=== PATIENT | male | born 1965 | race African-American/Black ===

== ENCOUNTER 2021-12-07 02:11 | Emergency (ER) | payer OTHER, SELFPAY ==
[2021-12-07] VITALS (10 sets, daily range): BP systolic 140–161; BP diastolic 90–103; PULSE 96–103; RESP 14–26; TEMP 36.3; O2SAT 99–100
--- NOTE | ~2021-12-07 | XR_ITS ---
EXAMINATION: XR chest 1V portable DATE: 12/07/2021 03:20 INDICATION: Shortness of breath. TECHNIQUE: A single frontal view of the chest was obtained. COMPARISON: None. FINDINGS: Tashi B lines are noted, consistent mild pulmonary edema. No pleural effusion or pneumotho rax. Cardiomegaly is noted. IMPRESSION: 1. Mild pulmonary edema. 2. Cardiomegaly. Reviewed, dictated and finalized at location A.
--- NOTE | 2021-12-07 02:34 | ECG_ITS ---
Measurements Intervals [place] Rate: 98 P: 66 W[place]: 181 QRS: -72 QRSD: 114 T: 97 QT: 382 QTc: 489 Interpretive Statements SINUS RHYTHM ATRIAL PREMATURE COMPLEX POSSIBLE LEFT ATRIAL ENLARGEMENT LEFT ANTERIOR FASCICULAR BLOCK BORDERLINE ST-T WAVE ABNORMALITY- HIGH LATERAL LEADS ABNORMAL ECG NO PREVIOUS ECG AVAILABLE FOR COMPARISON Electronically Signed On 12-07-2021 6:37:25 CDT by Gopi Abbott D.O.
--- NOTE | 2021-12-07 02:36 | ED.GENADULT ---
HPI - General Adult General Chief complaint: Shortness of Breath/Dyspnea Stated complaint: SOB Time Seen by Provider: 12/07/21 02:23 History of Present Illness HPI narrative: 56-year-old male with history of COPD on dialysis presents to the emergency department for evaluation of intermittent shortness of breath. Patient does live at home. Patient is normally on 2 L of oxygen. Patient states with ambulation that he feels increasingly short of breath. Patient does do dialysis on Tuesdays and Saturdays. Patient states he has not missed any dialysis. Patient states he did have some shortness of breath on Saturday and was evaluated at an outside hospital. Patient states that he had 2 episodes of shortness of breath today so he wanted to be evaluated. Patient arrived by EMS and was saturating at 100% on his normal 2 L of oxygen by nasal cannula. On arrival patient appeared to be in no distress. Patient denies any shortness of breath at rest. Patient denies any current chest pain. Related Data Home Medications Medication Instructions Recorded Confirmed albuterol sulfate 90 mcg/actuation 2 puff inhalation QID PRN 12/09/21 12/09/21 aerosol inhaler Shortness Of Breath atorvastatin 40 mg tablet 40 mg PO DAILY 12/09/21 12/09/21 fluticasone fur. 100 mcg-umeclid 1 inh inhalation DAILY 12/09/21 12/09/21 62.5 mcg-vilant 25 mcg inhalat.powder (Trelegy Ellipta) lorazepam 1 mg tablet See Rx Instructions .Route .COMPLEX 12/09/21 12/09/21 Allergies Allergy/AdvReac Type Severity Reaction Status Date / Time No Known Allergies Allergy Verified 12/07/21 02:50 Review of Systems Review of Systems: CONSTITUTIONAL: Denies fever, chills, or sweats. EYES: Denies visual changes, redness, or discharge. ENT: Denies rhinorrhea, congestion, sore throat, or otalgia. CARDIOVASCULAR: Denies chest pain, palpitations, or edema. RESPIRATORY: See HPI GASTROINTESTINAL: Denies abdominal pain, nausea, vomiting, or diarrhea. GENITOURINARY: Denies dysuria or hematuria. SKIN: Denies rash or itching. MUSCULOSKELETAL: Denies back pain, joint pain, or myalgia. NEUROLOGIC: Denies headache, numbness, or weakness. [facility] Past Medical History Medical History (Updated 12/10/21 @ 10:11 by Rogelio Webster MD) Anemia of chronic disease Anxiety AV fistula Chronic respiratory failure COPD (chronic obstructive pulmonary disease) End stage renal disease Erythropoietin deficiency anemia Hyperlipidemia Hypertension Renal osteodystrophy Troponin I above reference range Surgical History Surgical History (Updated 12/09/21 @ 15:21 by Nichole Conroy NP) S/P dialysis catheter insertion Family History Family History (Updated 12/09/21 @ 15:21 by Nichole Conroy NP) Unknown Family history unknown Social History Social History (Updated 12/09/21 @ 15:22 by Nichole Conroy NP) Social History: The patient is single and disabled. He is a former smoker. He is listed as a full code. His mother Lacie paris is listed as his contact center associate. Code status full code Smoking status: Former smoker Tobacco type: cigarettes Alcohol intake: never Substance use: former Spiritual care concerns: No Exam Narrative: APPEARANCE: Well appearing, no pain, no distress, well-nourished. HEAD: normocephalic, atraumatic. EYES: PERRLA/EOMI, conjunctivae clear. NOSE: Normal no drainage THROAT: Pharynx clear, no exudate. NECK: Supple. No adenopathy, no masses. RESPIRATORY: Some lung congestion CARDIOVASCULAR: Regular rate and rhythm without murmurs rubs or gallops. ABDOMINAL: Soft, nontender, nondistended, normal bowel sounds MUSCULOSKELETAL: Moves all extremities. Strength/ROM intact, No edema, No calf tenderness. NEURO: Alert. Cranial nerves II through XII intact. Grossly intact SKIN: Warm, dry. Normal Color Course Course Emergency Course: Patient was not complaining of any chest pain but was having intermittent shortness of breath. Pat
[2021-12-07] MEDS: ALBUTEROL SULFATE NEB 2.5 MG/3 ML INH 5 MG INHALATION (02:51)
[2021-12-07 02:57] LABS: Alveolar/Arterial O2 Gradient 62.9 mmHg; Base Excess ABG 2.4 mEq/l (+/-2.0); Fractional Inspired Oxygen 28 %; HCO3 ABG 26.5 mEq/l (22.0-26.0); Oxygen Saturation ABG 97.3 % (95.0-100.0); Oxyhemoglobin 94.5 % THb (90.0-100.0); PCO2 ABG 39.1 mmHg (35.0-45.0); PO2 ABG 90.6 mmHg (80.0-100.0); PO2 FiO2 Ratio Arterial Blood 3.24 %; Total Hemoglobin 12.7 g/dL (12.0-18.0); pH ABG 7.449 (7.350-7.450)
[2021-12-07 02:58] LABS: Device NASAL CANNULA; Modified Allen's Test Pass; Site Drawn RIGHT RADIAL
[2021-12-07 03:06] LABS: Basophils Absolute Auto 0.1 K/mm3 (0.0-0.1); Eosinophils Absolute Auto 0.2 K/mm3 (0-0.3); Eosinophils Percent Auto 2.6 % (0-4.4); Hematocrit 39.8 % (42.0-52.0); Immature Granulocyte Absolute 0.02 K/mm3 (0.00-0.031); Immature Granulocyte Percent A 0.3 % (0-0.5); Lymphocytes Absolute Auto 1.02 K/mm3 (0.9-3.2); Lymphocytes Percent Auto 16.7 % (18.3-44.2); Mean Corpuscular HGB Conc 30.2 g/dl (32-36); Mean Corpuscular Hemoglobin 31.4 pg (26-34); Mean Corpuscular Volume 104.2 fl (80-100); Monocytes Absolute Auto 0.8 K/mm3 (0.1-0.6); Monocytes Percent Auto 13.4 % (2.6-8.5); Platelet Count Result 122 k/mm3 (150-375); Red Blood Count 3.82 M/mm3 (4.6-6.20); Red Cell Distribution Width 17.1 % (11.5-14.5); White Blood Count 6.1 K/mm3 (4.5-10.0)
[2021-12-07 03:16] LABS: Alanine Aminotransferase 54 U/L (6-50); Albumin Level 4.2 g/dL (3.5-5.1); Alkaline Phosphatase 393 U/L (38-126); Anion Gap 17 mmol/L (8-16); Aspartate Amino Transferase 59 U/L (17-59); Blood Urea Nitrogen 58 mg/dL (9-20); Calcium 9.4 mg/dL (8.4-10.2); Carbon Dioxide 32 mmol/L (22-30); Chloride 95 mmol/L (98-107); Estimated Glomerular Filt Rate 6; Glucose 148 mg/dL (65-110); Potassium 4.5 mmol/L (3.4-5.0); Sodium 144 mmol/L (137-145)
[2021-12-07 03:42] LABS: SARS-CoV-2 RNA PCR Negative
--- NOTE | 2021-12-07 04:16 | PC.NURSE ---
called [facility] to request transport. ETA [id number]
--- NOTE | 2021-12-07 04:43 | PC.NURSE ---
[facility] here
== END 2021-12-07 04:53 | disposition home or self-care (01) ==
PROVIDERS: Emergency Provider Emergency Medicine
DX: R06.02 Shortness of breath (principal); Z20.822 Contact with and (suspected) exposure to COVID-19; I12.0 Hypertensive chronic kidney disease with stage 5 chronic kidney disease or end stage renal disease; N18.6 End stage renal disease; D63.1 Anemia in chronic kidney disease; J44.9 Chronic obstructive pulmonary disease, unspecified; J96.10 Chronic respiratory failure, unspecified whether with hypoxia or hypercapnia; E78.5 Hyperlipidemia, unspecified; N25.0 Renal osteodystrophy; Z99.2 Dependence on renal dialysis; Z99.81 Dependence on supplemental oxygen; Z87.891 Personal history of nicotine dependence; I49.1 Atrial premature depolarization; R94.31 Abnormal electrocardiogram [ECG] [EKG]
CPT/HCPCS: 36415; 36600; 71045; 80053; 82805; 85025; 93005; 94640; 99283; C9803; U0003; U0005

== ENCOUNTER 2021-12-09 07:32 | Inpatient (IN) | payer OTHER, SELFPAY ==
[2021-12-09] VITALS (60 sets, daily range): BP systolic 100–189; BP diastolic 56–119; PULSE 60–114; RESP 14–37; TEMP 36.2–37; O2SAT 92–100; BMI 21.2
--- NOTE | ~2021-12-09 | US_ITS ---
EXAMINATION: US right upper quadrant DATE: 12/10/2021 10:22 INDICATION: Elevated liver function tests TECHNIQUE: Multiple grayscale and Doppler ultrasound images of the abdomen were obtained. COMPARISON: None FINDINGS: Neck of pancreas. Small amount of perihepatic ascites surrounding the shrunken and nodular cirrhotic liver. Liver has normal echogenicity with coarsened. No discrete hepatic lesions identified. No intra hepatic biliary duct dilation suspected. Portal vein is dilated to 1.7 cm and there is bidirectional portal venous flow with increased pulsatility consistent with portal venous hypertension likely relat ed to cirrhosis. There is mild wall thickening of the nondistended gallbladder with trace amount of p ericholecystic fluid was likely related to liver disease. No evident cholelithiasis and sonographic M urphy sign was reported as negative by the harvester operator. The common bile duct measures up to 3 mm in m aximal diameter which is normal. The right kidney measures 7.0 x 3.8 x 4.7 cm with diffuse increased cortical echogenicity consistent with medical renal disease. No hydronephrosis at the right kidney. IMPRESSION: 1. Cirrhosis with small amount of perihepatic ascites and bidirectional flow in the mildly dilated ma in portal vein consistent with secondary portal venous hypertension. 2. Mild gallbladder wall thickening but without dilation, cholelithiasis or sonographic Spangler sign t o suggest acute cholecystitis and this is most likely related to liver disease. 3. Mildly atrophic kidney with diffuse increased cortical echogenicity consistent with medical renal disease. Reviewed, dictated and finalized at location A. IMPRESSION: 1. Cirrhosis with small amount of perihepatic ascites and bidirectional flow in the mildly dilated main portal vein consistent with secondary portal venous hy pertension. 2. Mild gallbladder wall thickening but without dilation, cholelithiasis or son ographic Spangler sign to suggest acute cholecystitis and this is most likely rel ated to liver disease. 3. Mildly atrophic kidney with diffuse increased cortical echogenicity consiste nt with medical renal disease.
--- NOTE | ~2021-12-09 | NM_ITS ---
HEPATOBILIARY SCAN Procedure: Hepatobiliary scan performed following IV administration 4.8 mCi Tc 99m Choletec. At 60 m inutes 1.2 mcg CCK administered IV for evaluation of gallbladder ejection fraction. Indication:Dilated gallbladder. Cirrhosis. Comparison: CT dated 12/11/2021 Findings: There is normal radiotracer uptake in the liver parenchyma with prompt excretion into the b iliary tract. Gallbladder visualized at 30 minutes. Small bowel visualized at 35 minutes. Normal g allbladder ejection fraction measures 49% (normal 10-90%, but most patients with gallbladder dysfunct ion have GBEF of less than 35%) Impression: 1: Normal hepatobiliary scan. Reviewed, dictated and finalized at location A. Impression: 1: Normal hepatobiliary scan.
--- NOTE | ~2021-12-09 | XR_ITS ---
EXAMINATION: XR chest 1V portable DATE: 12/10/2021 10:54 INDICATION: Shortness of breath TECHNIQUE: frontal view of the chest was obtained. COMPARISON: 12/09/2021 FINDINGS: Mild right apical pleural-parenchymal scarring. Minimal streaky opacities at the bilateral lung bases which could represent atelectasis or minimal pulmonary edema. No pleural effusion or pneumothorax. C ardiomegaly. Peripheral IV at the right upper arm. IMPRESSION: 1. Mild bibasilar atelectasis versus minimal pulmonary edema. 2. Cardiomegaly. Reviewed, dictated and finalized at location A.
--- NOTE | ~2021-12-09 | XR_ITS ---
EXAMINATION: XR chest 1V portable DATE: 12/09/2021 08:48 INDICATION: Shortness of breath. TECHNIQUE: A single frontal view of the chest was obtained. COMPARISON: Chest single view 12/07/2021 FINDINGS: There is mild atelectasis in the lower lung zones. No pleural effusion or pneumothorax. Car diomediastinal is noted. IMPRESSION: 1. Mild atelectasis in the lower lung zones. 2. Cardiomegaly. Reviewed, dictated and finalized at location A.
--- NOTE | ~2021-12-09 | US_ITS ---
EXAMINATION: US aorta DATE: 12/10/2021 10:22 INDICATION: Abdominal distention and abdominal bruit TECHNIQUE: Grayscale, color Doppler, and pulsed Doppler images of the aorta and common iliac arteries were obtained. COMPARISON: None. FINDINGS: The proximal aorta measures 2.2 cm AP. The mid aorta measures 1.9 cm AP. The distal aorta measures 1. 2 cm AP. The right common iliac artery measures centimeters. The left common iliac artery measures 1 cm. IMPRESSION: 1. Normal caliber abdominal aorta. Reviewed, dictated and finalized at location A.
--- NOTE | ~2021-12-09 | CT_ITS ---
EXAMINATION: CT brain wo con DATE: 12/11/2021 19:50 INDICATION: confusion . TECHNIQUE: Computed tomography (CT) of the head was performed without intravenous contrast. The mA wa s adjusted according to patient size. Iterative reconstruction technique was employed. The dose-lengt h product was 908.00 mGy-cm. COMPARISON: None FINDINGS: Motion present which required repeat imaging. No acute intracranial hemorrhage or extra-axial fluid collection. No hydrocephalus, mass, or herniation. No acute ischemic infarct. Unremarkable dural venous sinus attenuation. No acute osseous abnormality. The aerated spaces are clear. Mild atrophy and chronic white matter change. Atherosclerotic intracranial calcification. 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 Old bilateral lacunar basal ganglia infarcts, focal bilateral thalamic infarc ts, and focal pontine infarcts. IMPRESSION: Motion limited examination. No definite acute intracranial process. Reviewed, dictated and finalized at location K.
--- NOTE | ~2021-12-09 | CT_ITS ---
EXAMINATION: CT abdomen pelvis wo con DATE: 12/11/2021 19:50 INDICATION: abd pain TECHNIQUE: Computed tomography (CT) of the abdomen and pelvis was performed without intravenous contr ast. Automated exposure control and iterative reconstruction technique were employed. The dose-length product was 539.31 mGy-cm. COMPARISON: None. FINDINGS: Exam limited by bowel motion, lack of contrast, and arm down positioning. Lower thorax: Emphysematous and senescent lung changes. Bibasilar scar/atelectasis. Cardiomegaly. Hea vy coronary artery calcification. Liver: Advanced cirrhosis Biliary/Gallbladder: Gallbladder is normal. No bile duct dilation. Pancreas: No mass or duct dilation. Spleen: Normal. Adrenals:Bilateral adrenal thickening, likely hyperplasia. Kidneys: Bilateral renal atrophy. Peripheral calcification along the posterior and inferior aspect of the right lower pole, possibly from prior trauma or procedure, possibly with an old perinephric rose suze. GI tract: No small or large bowel dilation. Normal appendix. Mesentery/Peritoneum: Small volume ascites. No mesenteric mass or free air. Retroperitoneum: No mass. Atherosclerotic abdominal aortic and/or arterial calcifications. Pelvis: Bladder wall thickening, likely due to outlet compromise. Soft Tissues: Gynecomastia. Moderate body wall edema. Bones: No acute osseous finding. IMPRESSION: Limited examination. No acute abdominopelvic finding. Chronic and incidental findings detailed above. Reviewed, dictated and finalized at location K. IMPRESSION: Limited examination. No acute abdominopelvic finding. Chronic and incidental fi ndings detailed above.
--- NOTE | 2021-12-09 07:35 | ECG_ITS ---
Measurements Intervals [place] Rate: 89 P: 63 MD: 164 QRS: -72 QRSD: 132 T: 102 QT: 419 QTc: 511 Interpretive Statements SINUS RHYTHM WITH SINUS ARRHYTHMIA POSSIBLE LEFT ATRIAL ENLARGEMENT [-0.1mV P WAVE IN V1/V2] INTRAVENTRICULAR CONDUCTION DELAY [130+ ms QRS DURATION] LEFT ANTERIOR FASCICULAR BLOCK OLD INFERIOR INFARCT ST-T WAVE ABNORMALITY IN THE LATERAL LEADS COMPARED TO ECG 12/07/2021 03:04:[address]-T WAVE CHANGES IN THE LATERAL LEADS COMPARED TO PRIOR Electronically Signed On 12-10-2021 17:02:46 CDT by Gaetano Sibley M.D.
[2021-12-09] MEDS: DEXTROSE 50% 25 GM/50 ML SYRINGE IV PUSH ×3 (07:37→16:26)
[2021-12-09 07:40] LABS: Glucose Point of Care 50 mg/dl (65-105)
--- NOTE | 2021-12-09 07:52 | ED.WEAKNESS ---
HPI - Weakness General Chief complaint: Weakness Stated complaint: weak/lethargic, from dialysis Time Seen by Provider: 12/09/21 07:50 Source: patient, EMS and RN notes reviewed Limitations: no limitations History of Present Illness HPI Narrative: 56 years old -[place] male brought to the emergency room by ambulance from the dialysis center because of generalized weakness and lethargy since waking up this morning today. Patient denies any fever, chills, nausea, vomiting, just feeling weak and tired all over. Patient on chronic 4 L oxygen, did not miss any dialysis recently. Full code. MD Complaint: lack of energy Related Data Allergies Allergy/AdvReac Type Severity Reaction Status Date / Time No Known Allergies Allergy Verified 12/07/21 02:50 Review of Systems Review of Systems: All systems reviewed & are unremarkable except as noted in HPI and below Exam Narrative: General appearance: Well-developed, well-nourished, somnolent, lethargic, nasal cannula on Skin: Normal color Head: Normocephalic, nontraumatic Eyes: Clear conjunctiva ENT: Oropharynx normal, ears normal, nose normal Neck: Supple, nontender Chest and respiratory: Airway patent, no respiratory distress, no accessory muscle use Heart: Regular rate/rhythm Abdomen: Soft, nontender, no organomegaly, quiet bowel sounds Vascular: Normal peripheral pulses, normal capillary refill. Musculoskeletal: Normal range of motion, nontender back Neurologic: Alert and oriented ?3, somnolence Course Course Emergency Course: Patient became more awake and alert after D50 IV. Hypoglycemia could be the underlying cause of his lethargy. Patient will be admitted to IMU, nephrology consult. Possible hemodialysis today Consultations Consultation #1: Dr. Guevara Date: 12/09/21 Time: 08:30 Vital Signs Vital signs: Vital Signs Temperature 36.5 C 12/09/21 07:23 Pulse Rate 88 12/09/21 07:23 Respiratory Rate 25 H 12/09/21 07:23 Blood Pressure 144/101 H 12/09/21 07:23 Pulse Oximetry 100 12/09/21 07:23 Oxygen Delivery Nasal Cannula 12/09/21 07:23 Oxygen Flow Rate 4 12/09/21 07:23 Temperature 36.5 C 12/09/21 07:23 Pulse Rate 86 12/09/21 08:45 Respiratory Rate 31 H 12/09/21 08:45 Blood Pressure 189/111 H 12/09/21 08:45 Pulse Oximetry 100 12/09/21 07:23 Oxygen Delivery Nasal Cannula 12/09/21 07:23 Oxygen Flow Rate 4 12/09/21 07:23 MDM - Weakness Lab Data Result diagrams: 12/09/21 07:46 12/09/21 07:46 Labs: Lab Results 12/09/21 12/09/21 12/09/21 Range/Units 07:38 07:46 07:46 WBC 11.0 H (4.5-10.0) K/mm3 RBC 3.90 L (4.6-6.20) M/mm3 Hgb 12.2 L (14.0-18.0) g/dL Hct 39.2 L (42.0-52.0) % MCV 100.5 H (80-100) fl MCH 31.3 (26-34) pg MCHC 31.1 L (32-36) g/dl RDW 17.6 H (11.5-14.5) % Plt Count 133 L (150-375) k/mm3 MPV 11.3 H (7.4-10.4) fl Immature Gran % (Auto) 0.5 (0-0.5) % Neut % (Auto) 74.1 H (45.5-73.1) % Lymph % (Auto) 11.3 L (18.3-44.2) % Mcpherson % (Auto) 13.4 H (2.6-8.5) % Eos % (Auto) 0.6 (0-4.4) % Baso % (Auto) 0.1 L (0.2-1.2) % Lymph # (Auto) 1.24 (0.9-3.2) K/mm3 Mcpherson # (Auto) 1.5 H (0.1-0.6) K/mm3 Eos # (Auto) 0.1 (0-0.3) K/mm3 Baso # (Auto) 0.0 (0.0-0.1) K/mm3 Abs Immat Gran (auto) 0.06 H (0.00-0.031) K/mm3 Absolute Neuts (auto) 8.1 H (1.3-6.7) K/mm3 Absolute Nucleated RBC 0.0 (0.0-0.012) K/mm3 Nucleated RBC % 0.2 (0.0-0.2) % PT (11.1-14.7) Seconds INR APTT (22.3-36.8) SECONDS Sodium 138 (137-145) mmol/L Potassium 7.3 H* (3.4-5.0) mmol/L Chloride 94 L (98-1
[2021-12-09 07:53] LABS: Basophils Percent Auto 0.1 % (0.2-1.2); Eosinophils Absolute Auto 0.1 K/mm3 (0-0.3); Eosinophils Percent Auto 0.6 % (0-4.4); Hematocrit 39.2 % (42.0-52.0); Hemoglobin 12.2 g/dL (14.0-18.0); Immature Granulocyte Absolute 0.06 K/mm3 (0.00-0.031); Immature Granulocyte Percent A 0.5 % (0-0.5); Lymphocytes Absolute Auto 1.24 K/mm3 (0.9-3.2); Lymphocytes Percent Auto 11.3 % (18.3-44.2); Mean Corpuscular HGB Conc 31.1 g/dl (32-36); Mean Corpuscular Hemoglobin 31.3 pg (26-34); Mean Corpuscular Volume 100.5 fl (80-100); Mean Platelet Volume 11.3 fl (7.4-10.4); Monocytes Absolute Auto 1.5 K/mm3 (0.1-0.6); Monocytes Percent Auto 13.4 % (2.6-8.5); Neutrophils Absolute Auto 8.1 K/mm3 (1.3-6.7); Neutrophils Percent Auto 74.1 % (45.5-73.1); Nucleated Red Blood Cells Perc 0.2 % (0.0-0.2); Platelet Count Result 133 k/mm3 (150-375); Red Cell Distribution Width 17.6 % (11.5-14.5)
[2021-12-09 08:09] LABS: Alanine Aminotransferase 69 U/L (6-50); Albumin Level 4.3 g/dL (3.5-5.1); Alkaline Phosphatase 378 U/L (38-126); Anion Gap 21 mmol/L (8-16); Aspartate Amino Transferase 126 U/L (17-59); Bilirubin,Total 1.9 mg/dL (0.2-1.3); Blood Urea Nitrogen 74 mg/dL (9-20); Calcium 9.7 mg/dL (8.4-10.2); Carbon Dioxide 23 mmol/L (22-30); Chloride 94 mmol/L (98-107); Estimated CRCL calculation 8 ml/min; Estimated Glomerular Filt Rate 7; Glucose 53 mg/dL (65-110); Potassium 7.3 mmol/L (3.4-5.0); Sodium 138 mmol/L (137-145)
[2021-12-09 08:15] LABS: Glucose Point of Care 190 mg/dl (65-105)
[2021-12-09] MEDS: CALCIUM GLUCONATE 1,000 MG/10 ML VIAL 1000 MG IV PUSH (08:20)
[2021-12-09] MEDS: INSULIN HUMAN REGULAR (*BKC) 100 UNITS/ML 10 UNITS IV PUSH (08:21)
[2021-12-09] MEDS: SODIUM BICARBONATE 8.4% 50 MEQ/50 ML VIAL IV PUSH (08:28)
[2021-12-09 08:30] LABS: CRP 1.1 mg/dL (<1.0)
[2021-12-09 08:31] LABS: Lactic Acid Reflex 5.5 mmol/L (0.7-2.0)
[2021-12-09 08:35] LABS: INR 1.5; Partial Thromboplastin Time 29.9 SECONDS (22.3-36.8); Prothrombin Time 17.2 Seconds (11.1-14.7)
[2021-12-09 08:42] LABS: Alveolar/Arterial O2 Gradient 120.1 mmHg; Base Excess ABG 2.7 mEq/l (+/-2.0); Device NASAL CANNULA; Fractional Inspired Oxygen 36 %; HCO3 ABG 26.2 mEq/l (22.0-26.0); Modified Allen's Test Pass; Oxygen Content ABG 16.3 %vol (16.0-22.0); Oxygen Saturation ABG 97.6 % (95.0-100.0); Oxyhemoglobin 95.2 % THb (90.0-100.0); PCO2 ABG 36.6 mmHg (35.0-45.0); PO2 ABG 94.1 mmHg (80.0-100.0); PO2 FiO2 Ratio Arterial Blood 2.61 %; Site Drawn RIGHT RADIAL; Total Hemoglobin 12.1 g/dL (12.0-18.0); pH ABG 7.473 (7.350-7.450)
[2021-12-09 08:53] LABS: SARS-CoV-2 RNA PCR Negative
[2021-12-09 09:41] LABS: Glucose Point of Care 284 mg/dl (65-105)
--- NOTE | 2021-12-09 09:59 | PC.NURSE ---
called lab at 0957 and added on baseline trop test. spoke to Opal.
--- NOTE | 2021-12-09 10:00 | PC.NURSE ---
BG was 254 at 0945
--- NOTE | 2021-12-09 10:33 | ECG_ITS ---
Measurements Intervals [place] Rate: 96 P: 63 MT: 154 QRS: -69 QRSD: 124 T: 99 QT: 391 QTc: 495 Interpretive Statements SINUS RHYTHM WITH SINUS ARRHYTHMIA POSSIBLE LEFT ATRIAL ENLARGEMENT [-0.1mV P WAVE IN V1/V2] LEFT ANTERIOR FASCICULAR BLOCK [QRS AXIS <= -45, QR IN I, RS IN II] COMPARED TO ECG 12/09/2021 07:39:20 NO SIGNIFICANT CHANGES Electronically Signed On 12-10-2021 17:14:44 CDT by Gaetano Sibley M.D.
--- NOTE | 2021-12-09 10:37 | ECG_ITS ---
Measurements Intervals [place] Rate: 97 P: [place]: 0 QRS: 244 QRSD: 125 T: 94 QT: 411 QTc: 524 Interpretive Statements SINUS RHYTHM WITH PREMATURE ATRIAL COMPLEXES POSSIBLE LEFT ATRIAL ENLARGEMENT LIMB LEAD MISPLACEMENT/REVERSAL IS PRESENT COMPARED TO ECG 12/09/2021 10:47:27 LIMB LEAD MISPLACEMENT/REVERSAL IS PRESENT Electronically Signed On 12-10-2021 17:34:44 CDT by Gaetano Sibley M.D.
--- NOTE | 2021-12-09 10:38 | PC.NURSE ---
lab called again for troponin. lab did not yet run lab. alfonso to run lab at this time.
[2021-12-09] MEDS: SODIUM ZIRCONIUM CYCLOSILICATE 10 GM POWD.PACK 20 GM PO (10:56)
[2021-12-09 10:59] LABS: Troponin I 0.635 ng/mL (0.000-0.034)
--- NOTE | 2021-12-09 10:59 | PM.CNNEP ---
Assessment and Plan Assessment and plan (1) End stage renal disease: Code(s): N18.6 - End stage renal disease Status: Acute Assessment and Plan: the patient has end-stage renal disease. This is due to hypertension. His outpatient kidney doctor is Dr. Tolentino he has been on dialysis for a couple of years. He is due today (2) Hypertension: Code(s): I10 - Essential (primary) hypertension Status: Acute Assessment and Plan: he has hypertension. We do not know as admission medications. His blood pressure is okay right now. (3) Acute hyperkalemia: Code(s): E87.5 - Hyperkalemia Status: Acute Assessment and Plan: His potassium is high. He had EKG changes earlier and he received meds for hyperkalemia. Etiology is unclear. He seems to have not had any problems with potassium in the past. Certainly on as potassium was normal before dialysis. Consider endogenous potassium sources such as GI bleed, rhabdomyolysis, or hemolysis. His lethargy did improve some but he is still very weak. His EKG was repeated in seems a little bit better with QRS a little narrower however he still has significant symptoms so I think we ought to emergently dialyze him. I called Dr. Og who said we could put him up in the ICU. I talked to Skip the lead housekeeper and let him know of my discussion with the ICU doctor and his admission bed will be switched to the ICU as an IMU overflow. I talked with the dialysis supervisor testing and also with the dialysis nurse. She is not in the hospital now but she is coming to do his dialysis. I also called in [facility] to give him right away. (4) Hypoglycemia: Code(s): E16.2 - Hypoglycemia, unspecified Status: Acute Assessment and Plan: He has low glucose. But no diabetes. It is unclear what is going on. He does have a distended abdomen as if he has some ascites. Also has an abdominal bruit. His liver enzymes are elevated his bilirubin is high. Perhaps he has hepatitis or passive congestion from heart failure or cirrhosis, or some other biliary issue. I think he needs a CT scan of the belly but I think we need to get him stabilized as far as his potassium before we do any of this. (5) General weakness: Code(s): R53.1 - Weakness Status: Acute Assessment and Plan: this may be due to his potassium. His blood sugars were also to blame earlier as well. His glucose is higher now after he received the D50. (6) Erythropoietin deficiency anemia: Code(s): D63.1 - Anemia in chronic kidney disease Status: Acute Assessment and Plan: Hemoglobin is mildly low but not low enough to give EPO. (7) Renal osteodystrophy: Code(s): N25.0 - Renal osteodystrophy Status: Acute Assessment and Plan: Will check a phosphorus in the morning (8) Troponin I above reference range: Code(s): R77.8 - Other specified abnormalities of plasma proteins Status: Acute Assessment and Plan: he has positive troponins. Will repeat the EKG and also repeat the troponin. Will leave evaluation of this up to the hospitalist. History of Present Illness Reason for Consult Consult date: 12/09/21 Chief Complaint Chief complaint: General Weakness/Hyperkalemia/Hypoglycemia History of Present Illness Narrative: Scooby a very pleasant 56-year-old gentleman who has multiple medical problems including hypertension, heart murmur, end-stage renal disease on dialysis 3 times a week on Tuesdays and Saturdays under the care of Dr. Tolentino, anemia of chronic kidney disease, renal osteodystrophy , and coronary disease status post heart attack in 2001.. The patient was due for dialysis today and so went to his dialysis center. He was very weak and lethargic when he arrived at the center so they called an ambulance and brought him over to the emergency room. He was evaluated here an
[2021-12-09 11:14] LABS: Reflex Lactic Acid Yes or No Add Lactic
--- NOTE | 2021-12-09 11:25 | PC.NURSE ---
Patient care report called to HANNAH Mendoza. All questions answered at this time.
--- NOTE | 2021-12-09 11:53 | PC.NURSE ---
This patient, Oralia Jalloh , was admitted to Intensive Care Unit-6. Patient/family oriented to hospital policies and general routines including ID bracelet, bed and alarms, visiting hours, pain management, procedures, bathroom and other care routines, personal items, smoking policy, room service/diet, and visiting hours. Information on how to activate the Rapid Response Team has been discussed. Patient/Family are encouraged to report perceived risks to care and to ask questions if they do not understand what they are told or what they should do.
[2021-12-09 11:54] LABS: Creatine Kinase 186 U/L (55-170); Lactate Dehydrogenase 284 U/L (120-246)
[2021-12-09 12:13] LABS: Glucose Point of Care 141 mg/dl (65-105)
[2021-12-09 12:22] LABS: Anion Gap 17 mmol/L (8-16); Blood Urea Nitrogen 75 mg/dL (9-20); Calcium 9.4 mg/dL (8.4-10.2); Carbon Dioxide 25 mmol/L (22-30); Chloride 96 mmol/L (98-107); Estimated CRCL calculation 7 ml/min; Estimated Glomerular Filt Rate 7; Glucose 138 mg/dL (65-110); Potassium 5.3 mmol/L (3.4-5.0); Sodium 138 mmol/L (137-145)
[2021-12-09 12:35] LABS: Troponin I 0.655 ng/mL (0.000-0.034)
[2021-12-09 12:38] LABS: Hepatitis B Surface Antigen Negative (Negative)
[2021-12-09 12:52] LABS: Erythrocyte Sedimentation Rate 15 mm/hr (0-20)
[2021-12-09 13:08] LABS: Vitamin D 25 Hydroxy 28.8 ng/mL
--- NOTE | 2021-12-09 13:35 | PM.IMHP ---
H&P: HPI History of Present Illness Date/Time: 12/09/21 13:35 Chief Complaint: Weakness Narrative: This is a 56-year-old male patient who has end-stage renal disease and is on dialysis. The patient is on dialysis Saturday and Saturday. The patient was brought to the emergency department by the ambulance from the dialysis center because of generalized weakness and lethargy since waking up this morning. He denies any fever chills nausea vomiting. He is complaining of aching all over and feeling tired. He typically wears oxygen at 4 L per nasal cannula at home. He is on the same oxygen here. The patient thought that he missed 2 dialysis but the notes here state that he had been going to his dialysis and has not missed any. Nephrology has been consulted. The patient has been complaining of pain at his fistula site. He is currently receiving hemodialysis and ICU and I did not see his fistula site because of the tape but I did not see any redness outside of that. And has a positive bruit and thrill. His white count is noted to be 11.0. His H&H is 12.2 and 39.2. Which is his baseline. Platelet count 133. ABGs pH 7.473 and bicarb 26.2. Patient's potassium was initially 7.3 and is now 5.3. His creatinine is 9.6 which is his baseline. BUN is 75. Lactic is 5.5. Blood glucose 141. The patient is diabetic. Liver enzymes are elevated total bilirubin 1.9, AST 126, ALT 69, alkaline phosphatase 378. Troponin 0.635 and 0.655. Total creatinine kinase 186. Thyroid normal vitamin-D normal. He is negative for COVID. Chest x-ray was read as mild atelectasis in the lower lung zones. Cardiomegaly. The patient was given IV Tylenol, D50, calcium gluconate, IV insulin, Lokelma, IV fluids, and IV insulin. The patient is being admitted to inpatient status initially and then was changed to observation status. On the date of service of 12/09/2021. Review of Systems Review of Systems: See HPI All systems reviewed & are unremarkable except as noted in HPI and below Constitutional: Constitutional: Reports as per HPI and Reports no additional constitutional complaints Eyes: Eyes: Reports as per HPI and Reports no additional eye complaints ENT: Reports system reviewed and no additional complaints, except as documented and Reports Normal hearing present Cardiovascular: Cardiovascular: Reports no additional cardiovascular complaints Respiratory: Respiratory: Reports no additional respiratory complaints and Reports no additional respiratory complaints Gastrointestinal: Gastrointestinal: Reports as per HPI and Reports no additional gastrointestinal complaints Musculoskeletal: Musculoskeletal: Reports no additional musculoskeletal complaints Integumentary/Breasts: Skin/Breast: Reports system reviewed and no additional complaints, except as docu and Reports as per HPI Neurologic: Reports system reviewed and no additional complaints, except as documented, Reports as per HPI and Reports Normal hearing present Psychiatric: Psychiatric: Reports no additional psychiatric complaints and Reports as per HPI Endocrine: Endocrine: Reports no additional endocrine complaints Hematologic/Lymphatic: Hematologic/Lymphatic: Reports no additional hematologic/lymphatic complaints Allergic/Immunologic: Allergic/Immunologic: Reports no additional allergic/immunologic complaints [facility] Past Medical History Medical History (Updated 12/09/21 @ 15:21 by Nichole Conroy NP) Anemia of chronic disease Anxiety AV fistula COPD (chronic obstructive pulmonary disease) End stage renal disease Erythropoietin deficiency anemia Hyperlipidemia Hypertension Renal osteodystrophy Troponin I above reference range Surgical History Surgical History (Updated 12/09/21 @ 15:21 by Nichole Conroy NP) S/P dialysis catheter insertion Family History Family History (Updated 12/09/21 @ 15:21 by Nichole Conroy NP) Unknown Family history unknown Social History So
[2021-12-09 14:03] LABS: Complement C3 77 mg/dL (88-165)
[2021-12-09] MEDS: ALBUTEROL SULFATE NEB 2.5 MG/3 ML INH 5 MG INHALATION ×2 (14:05→20:10)
[2021-12-09] MEDS: IPRATROPIUM BR 0.02% INH SOLN 0.5 MG/2.5 ML VIAL INHALATION ×2 (14:06→20:10)
[2021-12-09 16:21] LABS: Anion Gap 14 mmol/L (8-16); Blood Urea Nitrogen 40 mg/dL (9-20); Carbon Dioxide 35 mmol/L (22-30); Chloride 93 mmol/L (98-107); Estimated CRCL calculation 12 ml/min; Estimated Glomerular Filt Rate 12; Glucose 57 mg/dL (65-110); Potassium 3.7 mmol/L (3.4-5.0); Sodium 142 mmol/L (137-145)
--- NOTE | 2021-12-09 17:01 | PC.NURSE ---
1700-Patient unable to obtain CT scan due to not being able to tolerate lay flat. Dr Guevara notified.
[2021-12-09] MEDS: hydrALAZINE HCL 20 MG/ML VIAL 10 MG IV PUSH (17:26)
[2021-12-09 17:38] LABS: Hepatitis B Surface Anti Res Negative; Hepatitis C Virus Antibody Negative (Negative)
[2021-12-09] MEDS: ISOSORBIDE MONONITRATE 30 MG TAB.ER.24H PO (17:41)
[2021-12-09 17:43] LABS: Glucose Point of Care 148 mg/dl (65-105)
[2021-12-09 17:43] LABS: Glucose Point of Care 144 mg/dl (65-105)
[2021-12-09 17:52] LABS: Influenza Control Positive
[2021-12-09 18:49] LABS: Glucose Point of Care 172 mg/dl (65-105)
[2021-12-09 19:29] LABS: Glucose Point of Care 167 mg/dl (65-105)
[2021-12-09 21:51] LABS: Hematocrit 45.3 % (42.0-52.0); Hemoglobin 13.1 g/dL (14.0-18.0); Immature Platelet Fraction Pct 5.4 % (0.9-11.2); Mean Corpuscular HGB Conc 28.9 g/dl (32-36); Mean Corpuscular Hemoglobin 31.3 pg (26-34); Mean Corpuscular Volume 108.4 fl (80-100); Mean Platelet Volume 11.1 fl (7.4-10.4); Platelet Count Result 103 k/mm3 (150-375); Red Blood Count 4.18 M/mm3 (4.6-6.20); Red Cell Distribution Width 18.1 % (11.5-14.5); White Blood Count 7.6 K/mm3 (4.5-10.0)
[2021-12-09 21:59] LABS: Lactic Acid Reflex 3.5 mmol/L (0.7-2.0)
[2021-12-09 22:41] LABS: Anion Gap 16 mmol/L (8-16); Blood Urea Nitrogen 49 mg/dL (9-20); Calcium 9.1 mg/dL (8.4-10.2); Carbon Dioxide 30 mmol/L (22-30); Chloride 92 mmol/L (98-107); Estimated CRCL calculation 10 ml/min; Estimated Glomerular Filt Rate 10; Glucose 119 mg/dL (65-110); Potassium 5.1 mmol/L (3.4-5.0); Sodium 138 mmol/L (137-145)
[2021-12-09 23:52] LABS: Glucose Point of Care 107 mg/dl (65-105)
[2021-12-10] VITALS (52 sets, daily range): BP systolic 98–167; BP diastolic 48–109; PULSE 51–94; RESP 12–26; TEMP 36.2–36.4; O2SAT 93–100
[2021-12-10 00:45] LABS: Reflex Lactic Acid Yes or No Add Lactic
[2021-12-10 01:12] LABS: Lactic Acid 2.3 mmol/L (0.7-2.0)
[2021-12-10] MEDS: IPRATROPIUM BR 0.02% INH SOLN 0.5 MG/2.5 ML VIAL INHALATION ×2 (02:10→14:35)
[2021-12-10] MEDS: ALBUTEROL SULFATE NEB 2.5 MG/3 ML INH 5 MG INHALATION ×2 (02:10→14:35)
[2021-12-10 04:37] LABS: Hemoglobin A1C 5.6 % (<5.7)
[2021-12-10 04:55] LABS: Alanine Aminotransferase 73 U/L (6-50); Albumin Level 3.7 g/dL (3.5-5.1); Alkaline Phosphatase 312 U/L (38-126); Anion Gap 12 mmol/L (8-16); Aspartate Amino Transferase 88 U/L (17-59); Bilirubin,Total 1.7 mg/dL (0.2-1.3); Blood Urea Nitrogen 56 mg/dL (9-20); Calcium 8.9 mg/dL (8.4-10.2); Carbon Dioxide 30 mmol/L (22-30); Chloride 94 mmol/L (98-107); Estimated CRCL calculation 10 ml/min; Estimated Glomerular Filt Rate 10; Glucose 93 mg/dL (65-110); Magnesium 2.3 mg/dL (1.6-2.3); Phosphorus 6.6 mg/dL (2.5-4.5); Potassium 5.1 mmol/L (3.4-5.0); Sodium 136 mmol/L (137-145)
[2021-12-10] MEDS: ISOSORBIDE MONONITRATE 30 MG TAB.ER.24H PO (08:23)
[2021-12-10] MEDS: METOPROLOL TARTRATE 50 MG TAB PO ×2 (08:24→20:14)
[2021-12-10 08:28] LABS: Glucose Point of Care 77 mg/dl (65-105)
--- NOTE | 2021-12-10 09:43 | PM.IMPN ---
Progress Note: A&P Assessment and Plan (1) Acute hyperkalemia: Code(s): E87.5 - Hyperkalemia Status: Acute Assessment and Plan: Patient initially presented to the ED on 12/07. Potassium at that time was 4.5. Patient states he is compliant with dialysis but his history is unreliable. Potassium on presentation yesterday morning was 7.3. He was treated appropriately for hyperkalemia. He is also given Lokelma. He underwent dialysis yesterday with removal of 3 L. potassium normalized yesterday. Potassium mildly elevated currently 5.1. Continue dialysis to control hyperkalemia. Renal diet. Appreciate Nephrology input. (2) Altered mental status: Code(s): R41.82 - Altered mental status, unspecified Status: Acute Assessment and Plan: patient presents with complaints of dizziness and weakness. He is currently culture despite undergoing dialysis yesterday. His BUN has improved. Appears to be a metabolic etiology for his confusion. COVID test was negative. White count mildly elevated on admission 11 K but normal now. TSH normal. Consider withdrawal. Consider sepsis with elevated lactic acid (normal now). Blood cultures collected. Antibiotics on hold. Chest x-ray not consistent with pneumonia. Will check UA. Consider also cirrhosis with the elevated liver enzymes, low plt and clinical findings. Will check ammonia level. His MCV is elevated which could explain this. Will add B12 as well as HIV. HIV can cause elevated MCV. He states he has been having diarrhea although the nurse states he has only had 1 loose bowel movement since admission. Will order stool cultures and C diff. imaging has been ordered. Will continue to hold antibiotics at this time. Lorazepam on hold but he only takes this on . UA and UDS ordered. Spoke with mother but she was unsure if patient had HD on . Also not sure but he may have gone to [place] on evening. She states there is no alcohol or drug use that she is aware of. Spoke with nephrology: liver enzymes have been elevated in the past. Has refused to see cardiology and GI in the past. Hx of noncomplinace with drinking excessive fluids. as a normal baseline mental status. (3) Troponin I above reference range: Code(s): R77.8 - Other specified abnormalities of plasma proteins Status: Acute Assessment and Plan: Trop up to 0.75. EKG showing NSR with possible inferior [place] and inverted T in high lateral leads. Repeat EKG noted. Could be related to electrolyte issues. Echo ordered. Cardiology consulted. Repeat Trop. Add ASA. (4) Hypoglycemia: Code(s): E16.2 - Hypoglycemia, unspecified Status: Acute Assessment and Plan: A1c 5.6. Patient's blood sugar was 50 on admisison. He told a provider that he is diabetic but there are no medication listed on his home medication reconciliation. Glucose treated and now more stable. Continue with Accu-Cheks and hypoglycemic protocol. (5) Elevated LFTs: Code(s): R79.89 - Other specified abnormal findings of blood chemistry Status: Acute Assessment and Plan: Noted. Consider acute hepatitis with cirrhosis. His plt count low and MCV elevated. Could not tolerate CT scan so Abd US ordered. Check ammonia level. Consider also colitis with the diarrhea or hepatic congestion from fluid overload. (6) General weakness: Code(s): R53.1 - Weakness Status: Acute Assessment and Plan: As above. Start PT OT. Repeat TCK. (7) End stage renal disease: Code(s): N18.6 - End stage renal disease Status: Acute Assessment and Plan: ESRD presumably related to uncontrolled hypertension. His outpatient kidney doctor is Dr. Tolentino. His dialysis is scheduled for Saturday. does not appear to be fluid overloaded. Continue dialysis as scheduled and per Nephrology. Appreciate Nephrology input. (8) Hypertension:
[2021-12-10 10:53] LABS: Creatine Kinase 104 U/L (55-170)
--- NOTE | 2021-12-10 11:07 | PM.PNNEP ---
Progress Note: A&P Assessment and Plan (1) End stage renal disease: Code(s): N18.6 - End stage renal disease Status: Acute Assessment and Plan: the patient has end-stage renal disease. Most likely due to hypertension. He gets dialysis 3 times a week on Tuesdays and Saturdays. I did talk with his face burler at home and the patient does have trouble with fluid gains. He has had a history of heart failure. He has been asked to go see Cardiology to help with this but he is never made it to these appointments. The patient also has had episodes where his liver enzymes are elevated. This is felt to be due to passive congestive because of his large fluid gains, however he was referred to a liver doctor. The patient did not go to these appointments either. He also has problems with controlling his electrolytes. Dietitian has worked with him extensively. Will continue dialysis 3 times a we can take off whatever fluid we can remove. discussed with Dr. Lerner (2) Hypertension: Code(s): I10 - Essential (primary) hypertension Status: Acute Assessment and Plan: The patient has hypertension. His systolic is up and down between the 90s in the 140s. He is on metoprolol and p.r.n. hydralazine. (3) Acute hyperkalemia: Code(s): E87.5 - Hyperkalemia Status: Acute Assessment and Plan: Potassium was very high on Saturday. Received dialysis for this. The potassium is better today. (4) Hypoglycemia: Code(s): E16.2 - Hypoglycemia, unspecified Status: Acute Assessment and Plan: The patient's blood sugars very low. I suspect this is probably due to his liver disease. Imaging is going to be done. (5) General weakness: Code(s): R53.1 - Weakness Status: Acute Assessment and Plan: The patient has general weakness. This may be due to his heart or liver or kidney failure or any combination of the 3. His hemoglobin seems to be okay. (6) Erythropoietin deficiency anemia: Code(s): D63.1 - Anemia in chronic kidney disease Status: Acute Assessment and Plan: His hemoglobin is only slightly low. No need for EPO at this point. (7) Renal osteodystrophy: Code(s): N25.0 - Renal osteodystrophy Status: Acute Assessment and Plan: Hemoglobin mildly high at 6.6. Will follow this along (8) Troponin I above reference range: Code(s): R77.8 - Other specified abnormalities of plasma proteins Status: Acute Assessment and Plan: cardiology has been consulted Subjective Date/time seen: 12/10/21 11:00am Interval history: Late entry. Patient seen on 12/10/2021 at 11:00 a.m. The patient is more awake today. he is still a bit confused. He says that he makes all of his dialysis treatments. He is short of breath on lying flat. No chest pain. His belly is still distended. Some discomfort in his belly with the distension. Exam Narrative: WDWN in NAD skin no rash head ncat lungs clear cor reg no rub , 2/6 systolic murmur. abd BS+ nontender and soft . He does have a poochy abdomen ext no edema. Objective Data Vital Signs Vital Signs: Vital Signs - 24 hr 12/10/21 16:39 12/10/21 16:00 12/10/21 18:00 Temperature 36.3 C L Pulse Rate 63 58 L 57 L Respiratory Rate 14 18 Blood Pressure 116/64 Pulse Oximetry 100 100 Oxygen Delivery Nasal Cannula Oxygen Flow Rate 3 12/10/21 20:00 12/10/21 20:14 12/10/21 20:00 Temperature 36.4 C Pulse Rate 63 69 66 Respiratory Rate 20 Blood Pressure 108/83 Pulse Oximetry 93 Oxygen Delivery Oxygen Flow Rate 12/10/21 20:00 12/10/21 21:46 12/10/21 22:56 Temperature 36.2 C L Pulse Rate 69 55 L Respiratory Rate 20 20 Blood Pressure 106/65 Pulse Oximetry 93 97 95 Oxygen Delivery Nasal Cannula Nasal Cannula Oxygen Flow Rate 2 2 12/10/21 22:00 12/11/21 00:00 12/11/21 00:0
[2021-12-10 11:35] LABS: Ammonia 65 umol/L (9-30)
[2021-12-10 11:51] LABS: HIV 1/2 Ab P24 Ag Result Negative (Negative)
[2021-12-10 12:14] LABS: Folic Acid 12.5 ng/mL (2.76->20); Vitamin B12 > 1000.0 pg/mL (239-931)
[2021-12-10 12:34] LABS: Glucose Point of Care 102 mg/dl (65-105)
--- NOTE | 2021-12-10 13:07 | PM.CNCAR ---
Assessment and Plan Assessment and plan (1) Altered mental status: Code(s): R41.82 - Altered mental status, unspecified Status: Acute (2) Troponin I above reference range: Code(s): R77.8 - Other specified abnormalities of plasma proteins Status: Acute (3) Elevated LFTs: Code(s): R79.89 - Other specified abnormal findings of blood chemistry Status: Acute (4) Chronic respiratory failure: Code(s): J96.10 - Chronic respiratory failure, unspecified whether with hypoxia or hypercapnia Status: Acute (5) Anemia of chronic disease: Code(s): D63.8 - Anemia in other chronic diseases classified elsewhere Status: Acute (6) COPD (chronic obstructive pulmonary disease): Code(s): J44.9 - Chronic obstructive pulmonary disease, unspecified Status: Acute (7) Hyperlipidemia: Code(s): E78.5 - Hyperlipidemia, unspecified Status: Acute (8) Anxiety: Code(s): F41.9 - Anxiety disorder, unspecified Status: Acute (9) Renal osteodystrophy: Code(s): N25.0 - Renal osteodystrophy Status: Acute (10) Hypertension: Code(s): I10 - Essential (primary) hypertension Status: Acute (11) End stage renal disease: Code(s): N18.6 - End stage renal disease Status: Acute (12) Acute hyperkalemia: Code(s): E87.5 - Hyperkalemia Status: Acute Plan Troponin trend: 0.635 --> 0.655 --> 0.750 --> 0.650 No acute ischemic changes on EKG. Patient denies chest pain. I suspect that his elevated troponins are due to underlying metabolic issues rather than ACS. Would not treat for ACS at this time. Would continue ASA and beta-osman. Echocardiogram has been ordered and is pending - willl follow up on the results History of Present Illness History of Present Illness Consult date/time: 12/10/21 13:07 Requesting physician: Chetan Guevara MD Consult reason: Other (Elevated troponin) Reason For Visit: General Weakness/Hyperkalemia/Hypoglycemia Narrative: Patient is a 56-year-old male with a history of ESRD on HD, history of CAD per reports who presented with weakness and lethargy. Patient went to his dialysis center yesterday and due to significant weakness and lethargy, he was sent to the ED. Found to have hyperkalemia of 7.3. Blood glucose 55. Patient had also reported shortness of breath upon admission, he is on 4L of oxygen at home. Patient was given D50, calcium gluconate, IV insulin, Lokelma, and underwent emergent dialysis session with improvement in potassium levels. Workup also showed mildly elevated troponins, for which we are called for consultation. Lactate was 5. Patient denies any recent chest pain. No chest pain since being here. Reports his shortness of breath has improved since undergoing dialysis yesterday. EKGs showing sinus rhythm with PACs Echo has been ordered and is pending. Troponin trend: 0.635 --> 0.655 --> 0.750 --> 0.650 Review of Systems Review of Systems: All systems reviewed & are unremarkable except as noted in HPI and below (HPI) PMFSH Past Medical History Medical History Anemia of chronic disease Anxiety AV fistula Chronic respiratory failure COPD (chronic obstructive pulmonary disease) End stage renal disease Erythropoietin deficiency anemia Hyperlipidemia Hypertension Renal osteodystrophy Troponin I above reference range Surgical History Surgical History S/P dialysis catheter insertion Family History Family History Unknown Family history unknown Social History Social History Social History: The patient is single and disabled. He is a former smoker. He is listed as a full code. His mother Lacie paris is listed as his insurance salesperson. Code status full code William
--- NOTE | 2021-12-10 13:49 | PCPTNOTE ---
attempted PT eval ~ 1315; pt refused--in ICU and stated he just wants to sleep ; unable to convince him to get OOB or walk.
--- NOTE | 2021-12-10 14:41 | PCOTNOTE ---
Attempted OT evaluation this pm. Pt. refused as he just wants to stay in bed . Will attempt again as able.
[2021-12-10] MEDS: ASPIRIN 81 MG CHEWABLE TABLET PO (15:23)
[2021-12-10 17:42] LABS: Glucose Point of Care 84 mg/dl (65-105)
[2021-12-10] MEDS: LACTULOSE 20 GM/30 ML UDC PO (18:40)
[2021-12-10 22:04] LABS: Glucose Point of Care 112 mg/dl (65-105)
[2021-12-10] MEDS: HALOPERIDOL LACTATE 5 MG/ML VIAL IM (22:27)
[2021-12-11] VITALS (34 sets, daily range): BP systolic 94–194; BP diastolic 55–104; PULSE 51–108; RESP 12–20; TEMP 36.1–37; O2SAT 94–100
[2021-12-11] MEDS: OLANZapine 10 MG INJ VIAL 5 MG IM (00:58)
[2021-12-11 05:26] LABS: Alanine Aminotransferase 87 U/L (6-50); Albumin Level 4.1 g/dL (3.5-5.1); Alkaline Phosphatase 350 U/L (38-126); Anion Gap 21 mmol/L (8-16); Aspartate Amino Transferase 126 U/L (17-59); Bilirubin,Total 2.4 mg/dL (0.2-1.3); Blood Urea Nitrogen 72 mg/dL (9-20); Calcium 9.3 mg/dL (8.4-10.2); Carbon Dioxide 24 mmol/L (22-30); Chloride 91 mmol/L (98-107); Estimated CRCL calculation 7 ml/min; Estimated Glomerular Filt Rate 7; Glucose 40 mg/dL (65-110); Magnesium 2.7 mg/dL (1.6-2.3); Phosphorus 9.1 mg/dL (2.5-4.5); Potassium 5.8 mmol/L (3.4-5.0); Sodium 136 mmol/L (137-145)
[2021-12-11] MEDS: DEXTROSE 50% 25 GM/50 ML SYRINGE IV PUSH ×2 (05:32→05:59)
[2021-12-11 05:56] LABS: Glucose Point of Care 39 mg/dl (65-105)
[2021-12-11 06:20] LABS: Glucose Point of Care 97 mg/dl (65-105)
[2021-12-11] MEDS: ALBUTEROL SULFATE NEB 2.5 MG/3 ML INH 5 MG INHALATION ×3 (08:19→20:54)
[2021-12-11] MEDS: IPRATROPIUM BR 0.02% INH SOLN 0.5 MG/2.5 ML VIAL INHALATION ×3 (08:19→20:55)
[2021-12-11] MEDS: FLUTICASONE/UMECLIDIN/VILANTER 100-62.5-25 MCG ELLIPTA 1 PUFF INHALATION (08:20)
[2021-12-11 08:23] LABS: Basophils Percent Auto 0.2 % (0.2-1.2); Eosinophils Percent Auto 0.2 % (0-4.4); Hematocrit 41.9 % (42.0-52.0); Hemoglobin 12.9 g/dL (14.0-18.0); Immature Granulocyte Absolute 0.04 K/mm3 (0.00-0.031); Immature Granulocyte Percent A 0.4 % (0-0.5); Lymphocytes Percent Auto 7.4 % (18.3-44.2); Mean Corpuscular HGB Conc 30.8 g/dl (32-36); Mean Corpuscular Hemoglobin 31.5 pg (26-34); Mean Corpuscular Volume 102.2 fl (80-100); Mean Platelet Volume 11.5 fl (7.4-10.4); Monocytes Percent Auto 18.2 % (2.6-8.5); Neutrophils Percent Auto 73.6 % (45.5-73.1); Nucleated Red Blood Cells Absolute Auto 0.1 K/mm3 (0.0-0.012); Nucleated Red Blood Cells Perc 0.6 % (0.0-0.2); Platelet Count Result 111 k/mm3 (150-375); Red Cell Distribution Width 17.2 % (11.5-14.5); White Blood Count 10.8 K/mm3 (4.5-10.0)
--- NOTE | 2021-12-11 08:24 | ECG_ITS ---
Measurements Intervals [place] Rate: 57 P: 64 ID: [id number] QRS: -73 QRSD: 120 T: 98 QT: 520 QTc: 509 Interpretive Statements SINUS BRADYCARDIA WITH OCCASIONAL SUPRAVENTRICULAR PREMATURE COMPLEXES POSSIBLE LEFT ATRIAL ENLARGEMENT ST ABNORMALITY LATERAL LEADS, CONSIDER MYOCARDIAL ISCHEMIA ABNORMAL ECG COMPARED TO ECG 12/09/2021 15:08:23 HEART RATE HAS DECREASED ST ABNORMALITIES MORE PROMINENT LATERAL LEADS Electronically Signed On 12-11-2021 15:06:24 CDT by Ady Benavides M.D.
[2021-12-11 08:29] LABS: Bilirubin Indirect 0.8 mg/dL (0-1.1)
[2021-12-11 09:09] LABS: Glucose Point of Care 184 mg/dl (65-105)
--- NOTE | 2021-12-11 09:20 | PCOTNOTE ---
Attempted to see pt. for occupational therapy evaluation. Pt. currently struggling to stay alert, and expresses difficulty breathing with movement sa02 at 86%, saO2 returning to 100% on 2 L quickly after returning to rest. Due to pt.'s level of alertness and O2 desaturation with minimal activity, pt. stating he can't breathe , pt. unsafe to work with at this time. pt. Nursing updated. Pt. going to dialysis. Following.
[2021-12-11] MEDS: DEXTROSE 5%/0.9% SOD CHL 1,000 ML 70 ML IV CONT (09:25)
--- NOTE | 2021-12-11 10:15 | PM.IMPN ---
Progress Note: A&P Assessment and Plan (1) Acute hyperkalemia: Code(s): E87.5 - Hyperkalemia Status: Acute Assessment and Plan: Patient initially presented to the ED on 12/07 and potassium was 4.5. Patient states he is compliant with dialysis but his history is unreliable. Potassium on presentation here was 7.3. He was treated appropriately for hyperkalemia. He is also given Lokelma. He underwent dialysis 12/09 with removal of 3 L. Potassium normalized but then elevated; currently 5.8. Continue dialysis to control hyperkalemia. Renal diet. Appreciate Nephrology input. HD planned for today. (2) Altered mental status: Code(s): R41.82 - Altered mental status, unspecified Status: Acute Assessment and Plan: Patient presents with complaints of dizziness and weakness. He was confused yesterday despite having HD on 12/09. COVID and influenza was negative. White count mildly elevated on admission 11 K and about the same today. TSH normal. US showing cirrhosis and Ammonia level elevated at 65 so lactulose started - suspect hepatic encephalopathy. Consider withdrawal. Consider sepsis with elevated lactic acid (normal now). BCx NGTD. Antibiotics remain on hold. Chest x-ray not consistent with pneumonia. UA and UDS ordered. CT brain ordered. HIV negative. TSH normal. Hepatitis panel negative. Suspect worsening symptoms related to anti-psychotic treatment given last night. Will watch. Re-order CT brain. GB distended from the cirrhosis but consider acute cholecystitis. Check HIDA. (3) Troponin I above reference range: Code(s): R77.8 - Other specified abnormalities of plasma proteins Status: Acute Assessment and Plan: Trop up to 0.75. EKG showing NSR with possible inferior [place] and inverted T in high lateral leads. Could be related to electrolyte issues. Echo ordered. Cardiology consulted. Repeat Trop trending down. Continue ASA. (4) Prolonged QT interval: Code(s): R94.31 - Abnormal electrocardiogram [ECG] [EKG] Status: Acute Assessment and Plan: As above. QTc prolonged probably related to her electrolyte abnormalities. Need to be very cautious with medications that prolong the QT. Continue to monitor on tele. (5) Hypoglycemia: Code(s): E16.2 - Hypoglycemia, unspecified Status: Acute Assessment and Plan: A1c 5.6. Patient's blood sugar was 50 on admisison. He told a provider that he is diabetic but there are no medication listed on his home medication reconciliation. Glucose treated but dropped again to 40 this morning. Continue with Accu-Cheks and hypoglycemic protocol. Add dextrose. Wean off fluids once eating (6) Elevated LFTs: Code(s): R79.89 - Other specified abnormal findings of blood chemistry Status: Acute Assessment and Plan: Transaminases higher today. TBili to 2.4 and mostly direct. [place] related to cirrhosis but can not exclude biliary etiology. Abd US showing cirrhosis with ascities and portal HTN; mild GB thickening with normal CBD. His plt count low and MCV elevated also consistent with cirrhosis. Could not tolerate CT scan yesterday but will reorder. Check HIDA scan. (7) Cirrhosis: Code(s): K74.60 - Unspecified cirrhosis of liver Status: Acute Assessment and Plan: As above. (8) End stage renal disease: Code(s): N18.6 - End stage renal disease Status: Acute Assessment and Plan: ESRD presumably related to uncontrolled hypertension. His outpatient kidney doctor is Dr. Tolentino. His dialysis is scheduled for Saturday. Continue dialysis as scheduled and per Nephrology. Appreciate Nephrology input. (9) Hypertension: Code(s): I10 - Essential (primary) hypertension Status: Acute Assessment and Plan: Patient's blood pressure was reviewed on 12/11 Blood pressure was elevated on admission. Not on anti-HTN meds at home. BP better overall a
--- NOTE | 2021-12-11 10:21 | PM.EVENT ---
Event Note Event Note Event Note: Pt is on HD merissa it well. seen at 10:22am
--- NOTE | 2021-12-11 10:27 | PM.PNNEP ---
Progress Note: A&P Assessment and Plan (1) End stage renal disease: Code(s): N18.6 - End stage renal disease Status: Acute Assessment and Plan: the patient has end-stage renal disease. Most likely due to hypertension. He gets dialysis 3 times a week on Tuesdays and Saturdays. He is getting his dialysis. Continue to try to remove fluid with dialysis. (2) Hypertension: Code(s): I10 - Essential (primary) hypertension Status: Acute Assessment and Plan: The patient has hypertension. His systolic is up and down between the 90s in the 190s He is on metoprolol and p.r.n. hydralazine. Will follow the blood pressure going forward. He had more adjustments in his medications. (3) Acute hyperkalemia: Code(s): E87.5 - Hyperkalemia Status: Acute Assessment and Plan: Potassium was very high on Saturday. Received dialysis for this. The potassium was better yesterday morning and is back up again today. he is on a 2 K bath (4) Hypoglycemia: Code(s): E16.2 - Hypoglycemia, unspecified Status: Acute Assessment and Plan: The patient's blood sugars very low. I suspect this is probably due to his liver disease. Imaging is going to be done. (5) General weakness: Code(s): R53.1 - Weakness Status: Acute Assessment and Plan: The patient has general weakness. This may be due to his heart or liver or kidney failure or any combination of the 3. His hemoglobin seems to be okay. (6) Erythropoietin deficiency anemia: Code(s): D63.1 - Anemia in chronic kidney disease Status: Acute Assessment and Plan: His hemoglobin is only slightly low. No need for EPO at this point. (7) Renal osteodystrophy: Code(s): N25.0 - Renal osteodystrophy Status: Acute Assessment and Plan: phosphorus is up to 9.1. He is on an iron based binder at home but we do not have these in stock so will use sevelamer for now. (8) Troponin I above reference range: Code(s): R77.8 - Other specified abnormalities of plasma proteins Status: Acute Assessment and Plan: cardiology has been consulted for the high troponin. (9) Elevated LFTs: Code(s): R79.89 - Other specified abnormal findings of blood chemistry Status: Acute Assessment and Plan: The patient has elevated liver enzymes. Ultrasound shows cirrhosis. Etiology of this is unclear. Possibly passive congestion from his volume overload. Echo has been ordered and is going to be done soon hopefully. Subjective Date/time seen: 12/11/21 10:20am Interval history: The patient is a bit sleepy today. He received some sedatives last night because he was confused and agitated. He is short of breath on lying flat. No chest pain. His belly is still distended. It looks about the same Exam Narrative: WDWN in NAD skin no rash head ncat lungs clear cor reg no rub , 2/6 systolic murmur. abd BS+ nontender and soft . He does have a poochy abdomen. Stable from yesterday. ext no edema. Objective Data Vital Signs Vital Signs: Vital Signs - 24 hr 12/10/21 16:39 12/10/21 16:00 12/10/21 18:00 Temperature 36.3 C L Pulse Rate 63 58 L 57 L Respiratory Rate 14 18 Blood Pressure 116/64 Pulse Oximetry 100 100 Oxygen Delivery Nasal Cannula Oxygen Flow Rate 3 12/10/21 20:00 12/10/21 20:14 12/10/21 20:00 Temperature 36.4 C Pulse Rate 63 69 66 Respiratory Rate 20 Blood Pressure 108/83 Pulse Oximetry 93 Oxygen Delivery Oxygen Flow Rate 12/10/21 20:00 12/10/21 21:46 12/10/21 22:56 Temperature 36.2 C L Pulse Rate 69 55 L Respiratory Rate 20 20 Blood Pressure 106/65 Pulse Oximetry 93 97 95 Oxygen Delivery Nasal Cannula Nasal Cannula Oxygen Flow Rate 2 2 12/10/21 22:00 12/11/21 00:00 12/11/21 00:00 Temperature Pulse Rate 57 L 52 L 55 L Respir
--- NOTE | 2021-12-11 11:18 | ECHO_ITS ---
Patient Info Name: Oralia Jalloh Age: 56 years : 1965 Gender: Male Ht: 68 in Wt: 148 lbs BSA: 1.80 m2 HR: 56 bpm BP: 107 / 62 mmHg Heart Rhythm: Sinus Rhythm Technical Quality: Fair Exam Date: 12/11/2021 4:08 PM Exam Location: [facility] Patient Status: Inpatient Admit Date: 12/11/2021 Staff Ordering Physician: Chetan Guevara MD Auditing Coder: Izabella Mcdonald RDCS Attending Provider: Aurea Jc MD Referring Physician: Ismael IRVING; Exam Type: CA echo doppler color flow Study Info Indications - CONGESTIVE HEART FAILURE Complete two-dimensional, color flow and Doppler transthoracic echocardiogram is performed. Summary 1. Complete two-dimensional, color flow and Doppler transthoracic echocardiogram is performed. 2. Left ventricular chamber dimension is severely enlarged. 3. Left ventricular systolic function is moderately reduced, estimated at 30-35%. 4. There is moderately increased left ventricular wall thickness. 5. The left ventricular diastolic function is grade I diastolic dysfunction. 6. Right ventricular chamber dimension is severely enlarged. 7. Right ventricular systolic function is reduced. 8. Right atrial chamber dimension is severely enlarged. 9. The mitral valve has thickened leaflets and restricted posterior leaflet motion. 10. There is moderate tricuspid valve regurgitation. 11. Estimated PASP of 49mmHg. Left Ventricle Left ventricular chamber dimension is severely enlarged. Left ventricular systolic function is moderately reduced, estimated at 30-35%. There is moderately increased left ventricular wall thickness. The left ventricular diastolic function is grade I diastolic dysfunction. Right Ventricle Right ventricular chamber dimension is severely enlarged. Right ventricular systolic function is reduced. Left Atria Left atrial chamber dimension is normal. Right Atria Right atrial chamber dimension is severely enlarged. Atrial Septum Intact interatrial septum visualized by color flow imaging. Aortic Valve The aortic valve is not well visualized. There is moderate aortic valve sclerosis. There is no aortic valve stenosis. There is no aortic valve regurgitation. Pulmonic Valve The pulmonic valve is not well visualized. Mitral Valve Calcification of the posterior leaflet. The mitral valve has thickened leaflets and restricted posterior leaflet motion. There is no mitral valve stenosis. There is mild mitral valve regurgitation. There is mild mitral valve calcification. Tricuspid Valve The tricuspid valve leaflets are normal. There is no significant tricuspid valve stenosis. There is moderate tricuspid valve regurgitation. Pericardium/Pleural There is no pericardial effusion. Inferior Vena Cava Dilated inferior vena cava with no collapse upon inspiration consistent with elevated right atrial pressure, 15 mmHg. Aorta The aortic root size at the sinus of Valsalva is normal. The prox ascending aorta size is normal. Left Ventricular Outflow Tract Name Value Normal LVOT 2D LVOT Diameter 2.0 cm LVOT Doppler LVO
--- NOTE | 2021-12-11 11:24 | PM.PNCARD ---
Progress Note: A&P Assessment and Plan (1) Troponin I above reference range: Code(s): R77.8 - Other specified abnormalities of plasma proteins Status: Acute Plan 56-year-old patient with modestly elevated troponin level which is the result of renal failure, not an acute coronary issue. Echocardiogram is ordered for today. There are no specific cardiac recommendations to make at this time. Teodoro Alcantara MD [facility] Subjective Date/time seen: Date of service: 12/11/21 11:24 Interval history: Follow-up visit in this 56-year-old man with: End-stage renal disease requiring hemodialysis. Patient was admitted here over the weekend apparently after missing dialysis and was severely hyperkalemic. Consulted regarding elevated troponin levels which appeared to be the result of renal failure and no clinical reason to suspect an acute coronary issue. Patient getting dialyzed at this time does not have any cardiac complaints Exam Const: General: no acute distress HENMT: Mouth: Yes moist mucous membranes Eyes: Sclera: sclerae normal Neck: Neck: supple and no JVD Resp: Effort & Inspection: normal respiratory effort Cardio: Rate: regular rate Rhythm: regular rhythm Skin: General skin exam: normal color Neuro: Other: Alert and oriented x3 Objective Data Vital Signs Vital Signs: Vital Signs - 24 hr 12/10/21 12:00 12/10/21 12:00 12/10/21 12:00 Temperature Pulse Rate 51 L 51 L 54 L Respiratory Rate 18 14 Blood Pressure 104/64 Pulse Oximetry 100 Oxygen Delivery Nasal Cannula Oxygen Flow Rate 3 12/10/21 14:00 12/10/21 14:00 12/10/21 14:30 Temperature Pulse Rate 58 L 58 L 69 Respiratory Rate 22 H 19 Blood Pressure 98/56 L Pulse Oximetry 100 Oxygen Delivery Oxygen Flow Rate 12/10/21 14:40 12/10/21 16:39 12/10/21 16:00 Temperature 36.3 C L Pulse Rate 82 63 58 L Respiratory Rate 16 14 18 Blood Pressure 116/64 Pulse Oximetry 100 100 Oxygen Delivery Nasal Cannula Oxygen Flow Rate 3 12/10/21 18:00 12/10/21 20:00 12/10/21 20:14 Temperature 36.4 C Pulse Rate 57 L 63 69 Respiratory Rate 20 Blood Pressure 108/83 Pulse Oximetry 93 Oxygen Delivery Oxygen Flow Rate 12/10/21 20:00 12/10/21 20:00 12/10/21 21:46 Temperature Pulse Rate 66 69 Respiratory Rate 20 Blood Pressure Pulse Oximetry 93 97 Oxygen Delivery Nasal Cannula Nasal Cannula Oxygen Flow Rate 2 2 12/10/21 22:56 12/10/21 22:00 12/11/21 00:00 Temperature 36.2 C L Pulse Rate 55 L 57 L 52 L Respiratory Rate 20 Blood Pressure 106/65 Pulse Oximetry 95 Oxygen Delivery Oxygen Flow Rate 12/11/21 00:00 12/11/21 02:00 12/11/21 03:59 Temperature 36.5 C Pulse Rate 55 L 51 L 56 L Respiratory Rate 20 20 Blood Pressure 107/62 Pulse Oximetry 95 96 Oxygen Delivery Nasal Cannula Oxygen Flow Rate 2 12/11/21 04:00 12/11/21 04:00 12/11/21 06:00 Temperature Pulse Rate 54 L 56 L 66 Respiratory Rate 20 Blood Pressure Pulse Oximetry 96 Oxygen Delivery Nasal Cannula Oxygen Flow Rate 2 12/11/21 08:10 12/11/21 08:20 12/11/21 08:21 Temperature Pulse Rate 62 64 Respiratory Rate 18 16 Blood Pressure Pulse Oximetry 97 Oxygen Delivery Nasal Cannula Oxygen Flow Rate 2 12/11/21 08:00 12/11/21 09:42 12/11/21 09:56 Temperature 36.1 C L 36.1 C L Pulse Rate 58 L 62 Respiratory Rate 12 18 Blood Pressure 145/86 H 144/92 H Pulse Oximetry 100 Oxygen Delivery Oxygen Flow Rate 3 12/11/21 09:56 12/11/21 08:00 12/11/21 08:00 Temperature Pulse Rate 59 L 56 L Respiratory Rate Blood Pressure 161/84 H Pulse Oximetry 95 Oxygen Delivery Nasal Cannula Oxygen Flow Rate 3 12/11/21 10:00 12/11/21 10:20 12/11/21 10:40 Temperature Pulse Rate 73 61 67 Respiratory Rate Blood Pressure 160/80 H 145/96 H Pulse Oximetry Oxygen Delivery Oxygen Flow Rate
[2021-12-11 11:30] LABS: Glucose Point of Care 181 mg/dl (65-105)
[2021-12-11] MEDS: ALBUMIN HUMAN 25% 12.5 GM/50ML 50 ML IVPB (12:19)
--- NOTE | 2021-12-11 13:47 | PM.PNNEP ---
Progress Note: A&P Assessment and Plan (1) End stage renal disease: Code(s): N18.6 - End stage renal disease Status: Acute Assessment and Plan: the patient has end-stage renal disease. This is due to hypertension. His outpatient kidney doctor is Dr. Tolentino he has been on dialysis for a couple of years. He is due today (2) Hypertension: Code(s): I10 - Essential (primary) hypertension Status: Acute Assessment and Plan: he has hypertension. We do not know as admission medications. His blood pressure is okay right now. (3) Acute hyperkalemia: Code(s): E87.5 - Hyperkalemia Status: Acute Assessment and Plan: His potassium is high. He had EKG changes earlier and he received meds for hyperkalemia. Etiology is unclear. He seems to have not had any problems with potassium in the past. Certainly on as potassium was normal before dialysis. Consider endogenous potassium sources such as GI bleed, rhabdomyolysis, or hemolysis. His lethargy did improve some but he is still very weak. His EKG was repeated in seems a little bit better with QRS a little narrower however he still has significant symptoms so I think we ought to emergently dialyze him. I called Dr. Og who said we could put him up in the ICU. I talked to Skip the house worker and let him know of my discussion with the ICU doctor and his admission bed will be switched to the ICU as an IMU overflow. I talked with the dialysis correctional food service supervisor and also with the dialysis nurse. She is not in the hospital now but she is coming to do his dialysis. I also called in [facility] to give him right away. (4) Hypoglycemia: Code(s): E16.2 - Hypoglycemia, unspecified Status: Acute Assessment and Plan: He has low glucose. But no diabetes. It is unclear what is going on. He does have a distended abdomen as if he has some ascites. Also has an abdominal bruit. His liver enzymes are elevated his bilirubin is high. Perhaps he has hepatitis or passive congestion from heart failure or cirrhosis, or some other biliary issue. I think he needs a CT scan of the belly but I think we need to get him stabilized as far as his potassium before we do any of this. (5) General weakness: Code(s): R53.1 - Weakness Status: Acute Assessment and Plan: this may be due to his potassium. His blood sugars were also to blame earlier as well. His glucose is higher now after he received the D50. (6) Erythropoietin deficiency anemia: Code(s): D63.1 - Anemia in chronic kidney disease Status: Acute Assessment and Plan: Hemoglobin is mildly low but not low enough to give EPO. (7) Renal osteodystrophy: Code(s): N25.0 - Renal osteodystrophy Status: Acute Assessment and Plan: Will check a phosphorus in the morning (8) Troponin I above reference range: Code(s): R77.8 - Other specified abnormalities of plasma proteins Status: Acute Assessment and Plan: he has positive troponins. Will repeat the EKG and also repeat the troponin. Will leave evaluation of this up to the hospitalist. Subjective Date/time seen: 12/11/21 13:47 Objective Data Vital Signs Vital Signs: Vital Signs - 24 hr 12/10/21 14:00 12/10/21 14:00 12/10/21 14:30 Temperature Pulse Rate 58 L 58 L 69 Respiratory Rate 22 H 19 Blood Pressure 98/56 L Pulse Oximetry 100 Oxygen Delivery Oxygen Flow Rate 12/10/21 14:40 12/10/21 16:39 12/10/21 16:00 Temperature 36.3 C L Pulse Rate 82 63 58 L Respiratory Rate 16 14 18 Blood Pressure 116/64 Pulse Oximetry 100 100 Oxygen Delivery Nasal Cannula Oxygen Flow Rate 3 12/10/21 18:00 12/10/21 20:00 12/10/21 20:14 Temperature 36.4 C Pulse Rate 57 L 63 69 Respiratory Rate 20 Blood Pressure 108/83 Pulse Oximetry 93 Oxygen Delivery Oxygen Flow Rate 12/10/21 20:00 10
--- NOTE | 2021-12-11 14:05 | PC.NURSE ---
Pt returned from dialysis. No issues noted
[2021-12-11 14:23] LABS: Glucose Point of Care 84 mg/dl (65-105)
[2021-12-11 17:10] LABS: Glucose Point of Care 103 mg/dl (65-105)
[2021-12-11] MEDS: LACTULOSE 20 GM/30 ML UDC PO (18:10)
[2021-12-11 18:35] LABS: Hepatitis B Core Ab Total Nonreactive (Nonreactive)
[2021-12-11] MEDS: rifAXIMin 550 MG TABLET PO (20:49)
[2021-12-11] MEDS: METOPROLOL TARTRATE 50 MG TAB PO (20:49)
[2021-12-11 22:32] LABS: Glucose Point of Care 170 mg/dl (65-105)
[2021-12-12] VITALS (24 sets, daily range): BP systolic 107–144; BP diastolic 62–88; PULSE 60–91; RESP 14–24; TEMP 36.3–36.8; O2SAT 92–100
[2021-12-12] MEDS: ALBUTEROL SULFATE NEB 2.5 MG/3 ML INH 5 MG INHALATION ×3 (01:45→15:14)
[2021-12-12] MEDS: IPRATROPIUM BR 0.02% INH SOLN 0.5 MG/2.5 ML VIAL INHALATION ×3 (01:45→15:14)
[2021-12-12] MEDS: DEXTROSE 5%/0.9% SOD CHL 1,000 ML 70 ML IV CONT (02:00)
[2021-12-12 05:02] LABS: Alanine Aminotransferase 94 U/L (6-50); Albumin Level 3.9 g/dL (3.5-5.1); Alkaline Phosphatase 314 U/L (38-126); Anion Gap 15 mmol/L (8-16); Aspartate Amino Transferase 102 U/L (17-59); Bilirubin,Total 1.5 mg/dL (0.2-1.3); Blood Urea Nitrogen 50 mg/dL (9-20); Calcium 8.5 mg/dL (8.4-10.2); Carbon Dioxide 29 mmol/L (22-30); Chloride 90 mmol/L (98-107); Estimated CRCL calculation 10 ml/min; Estimated Glomerular Filt Rate 11; Glucose 122 mg/dL (65-110); Magnesium 2.4 mg/dL (1.6-2.3); Phosphorus 6.9 mg/dL (2.5-4.5); Potassium 4.1 mmol/L (3.4-5.0); Sodium 134 mmol/L (137-145)
[2021-12-12 05:21] LABS: Basophils Percent Auto 0.4 % (0.2-1.2); Eosinophils Absolute Auto 0.1 K/mm3 (0-0.3); Eosinophils Percent Auto 1.8 % (0-4.4); Hematocrit 39.6 % (42.0-52.0); Hemoglobin 12.8 g/dL (14.0-18.0); Immature Granulocyte Absolute 0.03 K/mm3 (0.00-0.031); Immature Granulocyte Percent A 0.4 % (0-0.5); Lymphocytes Absolute Auto 1.05 K/mm3 (0.9-3.2); Lymphocytes Percent Auto 13.8 % (18.3-44.2); Mean Corpuscular HGB Conc 32.3 g/dl (32-36); Mean Corpuscular Hemoglobin 31.4 pg (26-34); Mean Corpuscular Volume 97.3 fl (80-100); Mean Platelet Volume 12.9 fl (7.4-10.4); Neutrophils Absolute Auto 5.4 K/mm3 (1.3-6.7); Neutrophils Percent Auto 70.6 % (45.5-73.1); Nucleated Red Blood Cells Absolute Auto 0.1 K/mm3 (0.0-0.012); Nucleated Red Blood Cells Perc 1.8 % (0.0-0.2); Platelet Count Result 88 k/mm3 (150-375); Red Blood Count 4.07 M/mm3 (4.6-6.20); Red Cell Distribution Width 17.8 % (11.5-14.5); White Blood Count 7.6 K/mm3 (4.5-10.0)
[2021-12-12 06:04] LABS: Ovalocytes 1+ (NORMAL); Platelet Estimate Decreased (Adequate); Schistocytes None Seen (NORMAL); Target Cells 1+ (NORMAL)
[2021-12-12] MEDS: FLUTICASONE/UMECLIDIN/VILANTER 100-62.5-25 MCG ELLIPTA 1 PUFF INHALATION (07:46)
[2021-12-12 07:49] LABS: Glucose Point of Care 96 mg/dl (65-105)
--- NOTE | 2021-12-12 08:18 | PCOTNOTE ---
Attempted to see pt. for occupational therapy evaluation. Pt. away from room at this time for testing. Following.
--- NOTE | 2021-12-12 10:12 | PM.PNCARD ---
Progress Note: A&P Assessment and Plan (1) Troponin I above reference range: Code(s): R77.8 - Other specified abnormalities of plasma proteins Status: Acute Assessment and Plan: This does not represent ACS, probably secondary to renal failure. (2) Cardiomyopathy: Code(s): I42.9 - Cardiomyopathy, unspecified Status: Acute Assessment and Plan: EF 30-35% by recent echo, previously 40-45%. ? secondary to CAD. He is established with a hybrid technologist at [facility], Dr. Rudolph who he should follow up with for ischemia evaluation - he is not currently having any ischemic symptoms. Unfortunately he is unable to be placed on optimal GDMT because of his ESRD. Entresto would be an option, however, he presented with hyperkalemia due to noncompliance with dialysis. Since Entresto can cause hyperkalemia without additional risk factors, this would represent a relative contraindication to this medication in my opinion. Cannot take MRA, SGLT2 inhibitor. Already on beta osman. Will use nitrate/hydralazine. HD for volume management. Should consider LifeVest for him prior to discharge - is having some NSVT on telemetry. (3) Prolonged QT interval: Code(s): R94.31 - Abnormal electrocardiogram [ECG] [EKG] Status: Acute Assessment and Plan: He does have prolonged QTc (524 ms on admission, 509ms on repeat EKG), improved after HD. Avoid QT prolonging agents. (4) End stage renal disease: Code(s): N18.6 - End stage renal disease Status: Acute Assessment and Plan: On HD. Subjective Date/time seen: 12/12/21 16:07 Complaining of difficulty breathing because he feels like his stomach is full. Denies any chest pain. Review of Systems Review of Systems: All systems reviewed & are unremarkable except as noted in HPI and below (HPI) Exam Const: General: no acute distress HENMT: Mouth: Yes moist mucous membranes Eyes: Sclera: sclerae normal Neck: Neck: supple and JVD Resp: Effort & Inspection: normal respiratory effort Auscultation: no crackles and no rales Other: On supplemental oxygen via nasal cannula. Decreased breath sounds in bases Cardio: Rate: regular rate Rhythm: regular rhythm Heart sounds: no murmurs GI: GI Palp: Yes Soft to palpation Skin: General skin exam: normal color Neuro: Speech: normal speech Other: Alert and oriented x3 Extrem: General: no edema Objective Data Vital Signs Vital Signs: Vital Signs - 24 hr 12/11/21 10:20 12/11/21 10:40 12/11/21 11:00 Temperature Pulse Rate 61 67 67 Respiratory Rate Blood Pressure 160/80 H 145/96 H 166/87 H Pulse Oximetry Oxygen Delivery Oxygen Flow Rate 12/11/21 12:00 12/11/21 12:00 12/11/21 11:20 Temperature Pulse Rate 69 69 Respiratory Rate Blood Pressure 150/104 H Pulse Oximetry 94 Oxygen Delivery Nasal Cannula Oxygen Flow Rate 3 12/11/21 11:40 12/11/21 12:00 12/11/21 12:20 Temperature Pulse Rate 69 60 56 L Respiratory Rate Blood Pressure 94/73 L 151/86 H 162/84 H Pulse Oximetry Oxygen Delivery Oxygen Flow Rate 12/11/21 12:40 12/11/21 14:00 12/11/21 13:00 Temperature Pulse Rate 88 73 108 H Respiratory Rate Blood Pressure 194/55 H 117/74 Pulse Oximetry Oxygen Delivery Oxygen Flow Rate 12/11/21 13:20 12/11/21 13:40 12/11/21 13:30 Temperature 36.2 C L 36.1 C L Pulse Rate 101 H 98 72 Respiratory Rate 18 20 Blood Pressure 128/96 H 138/72 157/83 H Pulse Oximetry 100 Oxygen Delivery Oxygen Flow Rate 12/11/21 16:00 12/11/21 16:00 12/11/21 18:00 Temperature 36.2 C L Pulse Rate 69 72 74 Respiratory Rate 16 Blood Pressure 124/90 Pulse Oximetry 100 Oxygen Delivery Oxygen Flow Rate 12/11/21 16:00 12/11/21 20:00 12/11/21 20:49 Temperature 36.7 C Pulse Rate 89 76 Respiratory Rate 20 Blood Pressure 110/80 Pulse Oximetry 94 99 Oxygen Delivery Nasal Ca
--- NOTE | 2021-12-12 10:30 | PM.PNNEP ---
Progress Note: A&P Assessment and Plan (1) End stage renal disease: Code(s): N18.6 - End stage renal disease Status: Acute Assessment and Plan: the patient has end-stage renal disease. Most likely due to hypertension. He gets dialysis 3 times a week on Tuesdays and Saturdays. We switched him to Saturday because of his high potassium. Continue to try to remove fluid with dialysis. (2) Hypertension: Code(s): I10 - Essential (primary) hypertension Status: Acute Assessment and Plan: The patient has hypertension. His systolic was up and down between the 90s in the 190s Since dialysis yesterday his blood pressure is settled in to the 110-140 range. He is on metoprolol and p.r.n. hydralazine. (3) Acute hyperkalemia: Code(s): E87.5 - Hyperkalemia Status: Acute Assessment and Plan: Potassium was very high on Saturday. Received dialysis for this. The potassium was better yesterday morning and is back up again today. he is on a 2 K bath. (4) Hypoglycemia: Code(s): E16.2 - Hypoglycemia, unspecified Status: Acute Assessment and Plan: The patient's blood sugars have been very low. I suspect this is probably due to his liver disease. Lately they have been running from 90-180. (5) General weakness: Code(s): R53.1 - Weakness Status: Acute Assessment and Plan: The patient has general weakness. This may be due to his heart or liver or kidney failure or any combination of the 3. His hemoglobin seems to be okay. (6) Erythropoietin deficiency anemia: Code(s): D63.1 - Anemia in chronic kidney disease Status: Acute Assessment and Plan: His hemoglobin is only slightly low. No need for EPO at this point. (7) Renal osteodystrophy: Code(s): N25.0 - Renal osteodystrophy Status: Acute Assessment and Plan: phosphorus is down to 6.9 with a renal diet and on binders. (8) Troponin I above reference range: Code(s): R77.8 - Other specified abnormalities of plasma proteins Status: Acute Assessment and Plan: cardiology has been consulted for the high troponin. He feels this is due to the renal failure. Echo is pending (9) Elevated LFTs: Code(s): R79.89 - Other specified abnormal findings of blood chemistry Status: Acute Assessment and Plan: The patient has elevated liver enzymes. Ultrasound shows cirrhosis. Etiology of this is unclear. Possibly passive congestion from his volume overload. Echo is pending. Subjective Date/time seen: 12/12/21 10:30 Interval history: The patient is more awake today. He is not short of breath. We discussed that we changed his dialysis to Saturday because of his potassium yesterday. We also discussed his phosphorus levels very high. He says that this is common as an outpatient. He says he does not always take his binders. Exam Narrative: WDWN in NAD skin no rash or subQ nodules head ncat lungs clear cor reg no rub , 2/6 systolic murmur. abd BS+ nontender and soft . He does have a poochy abdomen. Stable from yesterday. ext no edema or cyanosis Objective Data Vital Signs Vital Signs: Vital Signs - 24 hr 12/11/21 10:40 12/11/21 11:00 12/11/21 12:00 Temperature Pulse Rate 67 67 69 Respiratory Rate Blood Pressure 145/96 H 166/87 H Pulse Oximetry Oxygen Delivery Oxygen Flow Rate 12/11/21 12:00 12/11/21 11:20 12/11/21 11:40 Temperature Pulse Rate 69 69 Respiratory Rate Blood Pressure 150/104 H 94/73 L Pulse Oximetry 94 Oxygen Delivery Nasal Cannula Oxygen Flow Rate 3 12/11/21 12:00 12/11/21 12:20 12/11/21 12:40 Temperature Pulse Rate 60 56 L 88 Respiratory Rate Blood Pressure 151/86 H 162/84 H 194/55 H Pulse Oximetry Oxygen Delivery Oxygen Flow Rate 12/11/21
--- NOTE | 2021-12-12 11:13 | PM.IMPN ---
Progress Note: A&P Assessment and Plan (1) Acute hyperkalemia: Code(s): E87.5 - Hyperkalemia Status: Acute Assessment and Plan: Patient initially presented to the ED on 12/07 and potassium was 4.5. Patient states he is compliant with dialysis but potassium on presentation here was 7.3. He was treated appropriately for hyperkalemia. He is also given Lokelma. He underwent dialysis 12/09 and 12/11. Potassium normalized now. Continue dialysis to control hyperkalemia. Renal diet. Appreciate Nephrology input. (2) Altered mental status: Code(s): R41.82 - Altered mental status, unspecified Status: Acute Assessment and Plan: Patient presents with complaints of dizziness and weakness. He remained confused despite having HD. COVID and influenza was negative. White count mildly elevated on admission 11 K and about the same today. TSH normal. HIV negative. Hepatitis panel negative. CT brain showing no acute findings. US showing cirrhosis and Ammonia level elevated at 65 so lactulose started - suspect hepatic encephalopathy. Consider withdrawal. Consider sepsis with elevated lactic acid (normal now). BCx NGTD. Antibiotics remain on hold. Chest x-ray not consistent with pneumonia. UA and UDS ordered. GB distended but HIDA normal so felt distended GB related to cirrhosis. Continue Lactulose. Rifaximin added (not defined for HD but mostly remains intraluminal and 97% excreted in stool). (3) Troponin I above reference range: Code(s): R77.8 - Other specified abnormalities of plasma proteins Status: Acute Assessment and Plan: Trop up to 0.75. EKG showing NSR with possible inferior OH and inverted T in high lateral leads. Could be related to electrolyte issues. Echo showing EF 30-35% with Grade I diastolic dysfunction, severe RV enlargement with reduced fxn, severe JACQUELYN and moderate TR. Cardiology consulted. Repeat Trop trending down. Continue ASA. Continue Lopressor. On Imdur. Cards to add hydralazine. (4) Prolonged QT interval: Code(s): R94.31 - Abnormal electrocardiogram [ECG] [EKG] Status: Acute Assessment and Plan: As above. QTc prolonged probably related to his electrolyte abnormalities. Need to be very cautious with medications that prolong the QT. Continue to monitor on tele. Repeat EKG in am (5) Hypoglycemia: Code(s): E16.2 - Hypoglycemia, unspecified Status: Acute Assessment and Plan: A1c 5.6. Patient's blood sugar was 50 on admisison. He told a provider that he is diabetic but there are no medication listed on his home medication reconciliation. Glucose treated but dropped again to 40 yesterday morning ad treated. He was on dextrose but diet started now so will stop IV fluids. Continue with Accu-Cheks and hypoglycemic protocol. (6) Elevated LFTs: Code(s): R79.89 - Other specified abnormal findings of blood chemistry Status: Acute Assessment and Plan: Transaminases up and down. TBili better at 1.5. [place] related to cirrhosis and probably from right sided congestion. Abd US showing cirrhosis with ascites and portal HTN; mild GB thickening with normal CBD. His plt count low and MCV elevated also consistent with cirrhosis. CT A/P limited but shows nml GB, small volume of ascites and advanced cirrhosis with other chronic findings. HIDA normal to exclude GB pathology. (7) Cirrhosis: Code(s): K74.60 - Unspecified cirrhosis of liver Status: Acute Assessment and Plan: As above. (8) End stage renal disease: Code(s): N18.6 - End stage renal disease Status: Acute Assessment and Plan: ESRD presumably related to uncontrolled hypertension. His outpatient kidney doctor is Dr. Tolentino. His outpatient dialysis is scheduled for /Sat. Continue dialysis as scheduled and per Nephrology. Appreciate Nephrology input. Plan to hold today and perform HD tomorrow. (9) Hypertension: Code(
[2021-12-12] MEDS: LACTULOSE 20 GM/30 ML UDC PO ×2 (11:56→19:36)
[2021-12-12] MEDS: ASPIRIN 81 MG CHEWABLE TABLET PO (11:57)
[2021-12-12] MEDS: METOPROLOL TARTRATE 50 MG TAB PO ×2 (11:57→20:34)
[2021-12-12] MEDS: rifAXIMin 550 MG TABLET PO ×2 (11:58→20:34)
[2021-12-12] MEDS: ISOSORBIDE MONONITRATE 30 MG TAB.ER.24H PO (11:58)
[2021-12-12 12:46] LABS: Glucose Point of Care 114 mg/dl (65-105)
[2021-12-12 16:50] LABS: Glucose Point of Care 166 mg/dl (65-105)
[2021-12-12 20:30] LABS: Glucose Point of Care 120 mg/dl (65-105)
[2021-12-13] VITALS (26 sets, daily range): BP systolic 91–153; BP diastolic 56–84; PULSE 48–78; RESP 16–22; TEMP 36.1–37; O2SAT 97–100
[2021-12-13 04:41] LABS: Hematocrit 39.5 % (42.0-52.0); Mean Corpuscular HGB Conc 30.4 g/dl (32-36); Mean Corpuscular Volume 102.1 fl (80-100); Mean Platelet Volume 11.4 fl (7.4-10.4); Platelet Count Result 140 k/mm3 (150-375); Red Blood Count 3.87 M/mm3 (4.6-6.20); Red Cell Distribution Width 18.5 % (11.5-14.5); White Blood Count 7.8 K/mm3 (4.5-10.0)
[2021-12-13 05:20] LABS: Albumin Level 3.9 g/dL (3.5-5.1); Anion Gap 19 mmol/L (8-16); Blood Urea Nitrogen 62 mg/dL (9-20); Calcium 8.3 mg/dL (8.4-10.2); Carbon Dioxide 28 mmol/L (22-30); Chloride 91 mmol/L (98-107); Estimated CRCL calculation 8 ml/min; Estimated Glomerular Filt Rate 8; Glucose 117 mg/dL (65-110); Magnesium 2.5 mg/dL (1.6-2.3); Phosphorus 8.4 mg/dL (2.5-4.5); Potassium 4.2 mmol/L (3.4-5.0); Sodium 138 mmol/L (137-145)
--- NOTE | 2021-12-13 08:00 | ECG_ITS ---
Measurements Intervals [place] Rate: 70 P: 65 LA: 177 QRS: -70 QRSD: 121 T: 112 QT: 460 QTc: 500 Interpretive Statements SINUS RHYTHM POSSIBLE LEFT ATRIAL ENLARGEMENT CANNOT RULE OUT INFERIOR MYOCARDIAL INFARCTION, AGE INDETERMINATE MODERATE T-WAVE ABNORMALITY, CONSIDER LATERAL ISCHEMIA ABNORMAL ECG COMPARED TO ECG 12/11/2021 08:32:04 HEART RATE HAS INCREASED Electronically Signed On 12-13-2021 15:14:48 CDT by Ady Benavides M.D.
[2021-12-13] MEDS: LACTULOSE 20 GM/30 ML UDC PO (08:04)
[2021-12-13] MEDS: METOPROLOL TARTRATE 50 MG TAB PO (08:04)
[2021-12-13] MEDS: ASPIRIN 81 MG CHEWABLE TABLET PO (08:04)
[2021-12-13] MEDS: rifAXIMin 550 MG TABLET PO ×2 (08:05→21:09)
[2021-12-13] MEDS: ISOSORBIDE MONONITRATE 30 MG TAB.ER.24H PO (08:05)
[2021-12-13 08:22] LABS: Glucose Point of Care 110 mg/dl (65-105)
[2021-12-13] MEDS: FLUTICASONE/UMECLIDIN/VILANTER 100-62.5-25 MCG ELLIPTA 1 PUFF INHALATION (08:56)
[2021-12-13 12:26] LABS: Glucose Point of Care 143 mg/dl (65-105)
[2021-12-13 13:12] LABS: Alanine Aminotransferase 85 U/L (6-50); Alkaline Phosphatase 358 U/L (38-126); Aspartate Amino Transferase 85 U/L (17-59); Bilirubin,Total 1.4 mg/dL (0.2-1.3)
--- NOTE | 2021-12-13 13:50 | PCOTNOTE ---
Attempted to see patient close to lunch, patient SBA to move from chair to EOB. Patient declined therapy at this time. Came back to re-attempt to see patient, patient in dialysis. Will continue plan of care.
--- NOTE | 2021-12-13 14:13 | ECG_ITS ---
Measurements Intervals [place] Rate: 47 P: 248 RI: 120 QRS: -73 QRSD: 118 T: 122 QT: 531 QTc: 474 Interpretive Statements SINUS BRADYCARDIA WITH COMPETING ECTOPIC ATRIAL RHYTHM AND PREMATURE SUPRAVENTRICULAR COMPLEXES CANNOT RULE OUT INFERIOR MYOCARDIAL INFARCTION, AGE INDETERMINATE MODERATE T-WAVE ABNORMALITY, CONSIDER LATERAL ISCHEMIA ABNORMAL ECG COMPARED TO ECG 12/13/2021 09:45:06 NO SIGNIFICANT CHANGES Electronically Signed On 12-13-2021 15:27:06 CDT by Ady Benavides M.D.
--- NOTE | 2021-12-13 14:38 | PM.PNCARD ---
Progress Note: A&P Assessment and Plan (1) Troponin I above reference range: Code(s): R77.8 - Other specified abnormalities of plasma proteins Status: Acute Assessment and Plan: This does not represent ACS, probably secondary to renal failure type 2 infarction. (2) Cardiomyopathy: Code(s): I42.9 - Cardiomyopathy, unspecified Status: Acute Assessment and Plan: EF has declined compared to prior study, EF 30-35% by recent echo, previously 40-45%. Etiology remains unclear, possiblly secondary to CAD. He is established with a project geophysicist at [facility], Dr. Rudolph with whom he will follow for further ischemic evaluation - he is currently asymptomatic in this regard. Unfortunately, he is unable to be placed on optimal GDMT because of his ESRD in addition to questionable compliance in general and noted noncompliance with hemodialysis resulting in hyperkalemia at presentation requiring aggressive therapy. Cannot take MRA, SGLT2 inhibitor. Continue metoprolol, change to Toprol XL 50 mg daily prior to discharge. Continue nitrate/hydralazine. HD for volume management. Should consider LifeVest for him prior to discharge - is having some NSVT on telemetry. Attempt to add hydralazine 10 mg t.i.d. as BP permits. Ideally, Bidil 37.5mg TID would be preferable if able to obtain as an outpatient. Given EF less than 35%, PVCs and nonsustained VT consideration for life vest. Will need to discuss with patient more coherent. Questions with regards to compliance results and uncertainty with regards to ICD candidacy. May defer to his primary project geophysicist unless significant ventricular arrhythmias persist and patient agrees. Patient appears to be clinically euvolemic. Altered mental status has improved yet he remains somewhat lethargic. (3) Prolonged QT interval: Code(s): R94.31 - Abnormal electrocardiogram [ECG] [EKG] Status: Acute Assessment and Plan: He does have prolonged QTc (524 ms on admission, 509ms on repeat EKG), improved after HD. Avoid QT prolonging agents. Continue to monitor by ECG. Patient quite bradycardic, QTC 474 mildly prolonged. (4) End stage renal disease: Code(s): N18.6 - End stage renal disease Status: Acute Assessment and Plan: On HD. Management per Nephrology. Subjective Date/time seen: Date of service: 12/13/21 14:38 Interval history: Follow-up visit in this 56-year-old man with: End-stage renal disease requiring hemodialysis. Patient was admitted here over the weekend apparently after missing dialysis and was severely hyperkalemic. Consulted regarding elevated troponin levels which appeared to be the result of renal failure and no clinical reason to suspect an acute coronary issue. Nursing reports intermittent confusion although somewhat improved this morning initially. Patient lethargic but arousable lying in bed, no apparent distress. Patient denies shortness of breath or chest pain. Patient complained of sensation of food getting stuck in his chest after eating currently resolved. Maintaining sinus rhythm, PVCs noted, brief nonsustained VT telemetry. No palpitations. Plan for ongoing dialysis. Review of Systems Review of Systems: All systems reviewed & are unremarkable except as noted in HPI and below (HPI) Exam Narrative: General: male lying upright in bed sleeping, lethargic but arousable closed answering most questions appropriately but dozing off intermittently, No apparent distress, comfortable, pleasant, and cooperative. Head: atraumatic, normocephalic Eyes: sclerae anicteric, conjunctivae unremarkable Ears/Nose: external inspection of ears and nose were grossly normal Mouth/Throat: oral mucosa pink and moist Neck: supple, normal range of motion, no jugular venous distention or carotid bruits, thyroid nonpalpable, trachea midline. Cardiac: Regular rate and rhythm, normal S1-S2, soft early sy
--- NOTE | 2021-12-13 14:59 | PM.PNNEP ---
Progress Note: A&P Assessment and Plan (1) End stage renal disease: Code(s): N18.6 - End stage renal disease Status: Acute Assessment and Plan: the patient has end-stage renal disease. Most likely due to hypertension. He gets dialysis 3 times a week on Tuesdays and Saturdays. He is on dialysis now and tolerating it well. (2) Hypertension: Code(s): I10 - Essential (primary) hypertension Status: Acute Assessment and Plan: The patient has hypertension. His systolic has been running 100-140 the last 24 hours or so. He is on metoprolol and p.r.n. hydralazine. Because of his low pulse, I will change his metoprolol to 25 Q 12 and add hydralazine p.o.. (3) Acute hyperkalemia: Code(s): E87.5 - Hyperkalemia Status: Acute Assessment and Plan: Potassium is good today. (4) Hypoglycemia: Code(s): E16.2 - Hypoglycemia, unspecified Status: Acute Assessment and Plan: His sugars seem to be stabilizing. (5) General weakness: Code(s): R53.1 - Weakness Status: Acute Assessment and Plan: The patient has general weakness. This may be due to his heart or liver or kidney failure or any combination of the 3. His hemoglobin seems to be okay. (6) Erythropoietin deficiency anemia: Code(s): D63.1 - Anemia in chronic kidney disease Status: Acute Assessment and Plan: His hemoglobin is only slightly low. No need for EPO at this point. (7) Renal osteodystrophy: Code(s): N25.0 - Renal osteodystrophy Status: Acute Assessment and Plan: phosphorus is Up and down. Continue binders. (8) Troponin I above reference range: Code(s): R77.8 - Other specified abnormalities of plasma proteins Status: Acute Assessment and Plan: cardiology has been consulted for the high troponin. He feels this is due to the renal failure. Echo is Shows a moderately poor ejection fraction of 30-35%. He is more short of breath this afternoon. He has crackles at both bases. We did an EKG because of his low heart rate. This did show a fairly low heart rate but not severely. His EKG is unchanged from what it was this morning. I think he needs more fluid off. Will continue dialysis and get the fluid off. Will see how he is after dialysis and go from there. (9) Elevated LFTs: Code(s): R79.89 - Other specified abnormal findings of blood chemistry Status: Acute Assessment and Plan: The patient has elevated liver enzymes. Ultrasound shows cirrhosis. Etiology of this is unclear. Possibly passive congestion from his volume overload. Echo is pending. Subjective Date/time seen: 12/13/21 14:59 Interval history: I saw the patient this morning. He was resting comfortably in bed. He had a little bit of shortness of breath. I some for a 2nd time a few minutes ago. He is on dialysis and tolerating it well. His blood pressure is about 110. He was seen at 2:50 p.m.. He is more short of breath now. No chest pain. Exam Narrative: WDWN in NAD skin no rash or subQ nodules head ncat lungs Few crackles at both bases. cor reg , mildly slow. no rub , 2/6 systolic murmur. abd BS+ nontender and soft . ext no edema Objective Data Vital Signs Vital Signs: Vital Signs - 24 hr 12/12/21 15:15 12/12/21 15:29 12/12/21 16:00 Temperature 36.8 C Pulse Rate 62 67 61 Respiratory Rate 22 H 22 H 14 Blood Pressure 109/62 Pulse Oximetry 98 Oxygen Delivery Oxygen Flow Rate 12/12/21 16:00 12/12/21 16:00 12/12/21 18:00 Temperature Pulse Rate 60 61 Respiratory Rate Blood Pressure Pulse Oximetry 92 Oxygen Delivery Nasal Cannula Oxygen Flow Rate 2 12/12/21 19:51 12/12/21 20:34 12/12/21 20:00 Temperature 36.3 C L Pulse Rate 71 72 71 Respiratory Rate 16 Blood Pressure 144/71 H Pul
[2021-12-13] MEDS: ALBUTEROL SULFATE NEB 2.5 MG/3 ML INH 5 MG INHALATION (15:03)
[2021-12-13] MEDS: SODIUM CHLORIDE 0.9% IV 1,000 ML 999 ML IV CONT (15:27)
[2021-12-13] MEDS: LIDOCAINE/PRILOCAINE CREAM 2.5-2.5% TUBE 1 EACH TOPICAL (15:27)
[2021-12-13 15:54] LABS: Haptoglobin 50 mg/dL (43-212)
--- NOTE | 2021-12-13 17:49 | PM.IMPN ---
Progress Note: A&P Assessment and Plan (1) Acute hyperkalemia: Code(s): E87.5 - Hyperkalemia Status: Acute Assessment and Plan: Patient initially presented to the ED on 12/07 and potassium was 4.5. Patient states he is compliant with dialysis but potassium on presentation here was 7.3. He was treated appropriately for hyperkalemia. He is also given Lokelma. He underwent dialysis 12/09 and 12/11. Potassium normalized now. Continue dialysis to control hyperkalemia. Renal diet. Appreciate Nephrology input. (2) Altered mental status: Code(s): R41.82 - Altered mental status, unspecified Status: Acute Assessment and Plan: Patient presents with complaints of dizziness and weakness. He remained confused despite having HD. COVID and influenza was negative. White count mildly elevated on admission 11 K. TSH normal. HIV negative. Hepatitis panel negative. CT brain showing no acute findings. US showing cirrhosis and Ammonia level elevated at 65 so lactulose started - suspect hepatic encephalopathy. Consider withdrawal. Consider sepsis with elevated lactic acid (normal now). BCx NGTD. Antibiotics remain on hold. Chest x-ray not consistent with pneumonia. UA and UDS ordered. GB distended but HIDA normal so felt distended GB related to cirrhosis. Continue Lactulose. Rifaximin added (not defined for HD but mostly remains intraluminal and 97% excreted in stool). (3) Troponin I above reference range: Code(s): R77.8 - Other specified abnormalities of plasma proteins Status: Acute Assessment and Plan: Trop up to 0.75. EKG showing NSR with possible inferior TN and inverted T in high lateral leads. Could be related to electrolyte issues. Echo showing EF 30-35% with Grade I diastolic dysfunction, severe RV enlargement with reduced fxn, severe JACQUELYN and moderate TR. Cardiology consulted. Repeat Trop trending down. Continue ASA. Continue Lopressor. On Imdur/hydralazine Etiology unclear. Consider LifeVest at discharge. (4) Prolonged QT interval: Code(s): R94.31 - Abnormal electrocardiogram [ECG] [EKG] Status: Acute Assessment and Plan: As above. QTc prolonged probably related to his electrolyte abnormalities. Need to be very cautious with medications that prolong the QT. Continue to monitor on tele. Repeat EKG in am (5) Hypoglycemia: Code(s): E16.2 - Hypoglycemia, unspecified Status: Acute Assessment and Plan: A1c 5.6. Patient's blood sugar was 50 on admisison. He told a provider that he is diabetic but there are no medication listed on his home medication reconciliation. Glucose treated but dropped again to 40 yesterday morning ad treated. He was on dextrose but diet started now so will stop IV fluids. Continue with Accu-Cheks and hypoglycemic protocol. (6) Elevated LFTs: Code(s): R79.89 - Other specified abnormal findings of blood chemistry Status: Acute Assessment and Plan: Transaminases up and down. TBili better at 1.5. [place] related to cirrhosis and probably from right sided congestion. Abd US showing cirrhosis with ascites and portal HTN; mild GB thickening with normal CBD. His plt count low and MCV elevated also consistent with cirrhosis. CT A/P limited but shows nml GB, small volume of ascites and advanced cirrhosis with other chronic findings. HIDA normal to exclude GB pathology. (7) Cirrhosis: Code(s): K74.60 - Unspecified cirrhosis of liver Status: Acute Assessment and Plan: As above. (8) End stage renal disease: Code(s): N18.6 - End stage renal disease Status: Acute Assessment and Plan: ESRD presumably related to uncontrolled hypertension. His outpatient kidney doctor is Dr. Tolentino. His outpatient dialysis is scheduled for . Continue dialysis as scheduled and per Nephrology. Appreciate Nephrology input. (9) Hypertension: Code(s): I10 - Essential (primary) hypertens
[2021-12-13 18:20] LABS: Glucose Point of Care 91 mg/dl (65-105)
[2021-12-13 19:41] LABS: Glucose Point of Care 154 mg/dl (65-105)
[2021-12-13] MEDS: hydrALAZINE 10 MG TABLET PO (21:09)
[2021-12-13] MEDS: METOPROLOL TARTRATE 25 MG TABLET PO (21:10)
[2021-12-14] VITALS (15 sets, daily range): BP systolic 111–126; BP diastolic 61–86; PULSE 57–77; RESP 16–20; TEMP 36.2–36.6; O2SAT 97–100
[2021-12-14 08:07] LABS: Glucose Point of Care 126 mg/dl (65-105)
[2021-12-14] MEDS: rifAXIMin 550 MG TABLET PO ×2 (08:59→21:24)
[2021-12-14] MEDS: ASPIRIN 81 MG CHEWABLE TABLET PO (08:59)
[2021-12-14] MEDS: ISOSORBIDE MONONITRATE 30 MG TAB.ER.24H PO (08:59)
[2021-12-14] MEDS: hydrALAZINE 10 MG TABLET PO ×3 (08:59→21:25)
[2021-12-14] MEDS: METOPROLOL TARTRATE 25 MG TABLET PO ×2 (09:00→21:24)
[2021-12-14] MEDS: FLUTICASONE/UMECLIDIN/VILANTER 100-62.5-25 MCG ELLIPTA 1 PUFF INHALATION (09:01)
--- NOTE | 2021-12-14 09:11 | PM.PNCARD ---
Progress Note: A&P Assessment and Plan (1) Troponin I above reference range: Code(s): R77.8 - Other specified abnormalities of plasma proteins <Herlinda IsaacKELLIE dalal - Last Filed: 12/14/21 09:39> Status: Acute <Herlinda Thurman PARISAMaverick - Last Filed: 12/14/21 09:39> Assessment and Plan: This does not represent ACS, probably secondary to renal failure type 2 infarction. <KELLIE Grant - Last Filed: 12/14/21 09:39> (2) Cardiomyopathy: Code(s): I42.9 - Cardiomyopathy, unspecified <Herlinda IsaacPARISA dalalAdaDhruv - Last Filed: 12/14/21 09:39> Status: Acute <Herlinda Isaackatlin SONG PLUGGERMaverick - Last Filed: 12/14/21 09:39> Assessment and Plan: EF has declined compared to prior study, EF 30-35% by recent echo, previously 40-45%. Etiology remains unclear, possiblly secondary to CAD. He is established with a paint spray inspector at [facility], Dr. Rudolph with whom he will follow for further ischemic evaluation - he is currently asymptomatic in this regard. Unfortunately, he is unable to be placed on optimal GDMT because of his ESRD. Cannot take MRA, SGLT2 inhibitor, PRAVEEN/ARNI. Continue metoprolol, change to Toprol XL 50 mg daily prior to discharge. Continue nitrate/hydralazine. HD for volume management. Continue hydralazine 10 mg t.i.d. as BP permits. Ideally, Bidil 37.5mg TID would be preferable if able to obtain as an outpatient. Given EF less than 35%, PVCs and nonsustained VT consideration for life vest. Discussed this concept with patient this morning and he would like to proceed with LifeVest. He reports compliance with cardiology follow up and understands this is necessary in order to be considered for ICD in the future. Patient appears to be clinically euvolemic. Altered mental status has improved today. <Herlinda Pearce CucaKELLIE dalal - Last Filed: 12/14/21 09:39> (3) Prolonged QT interval: Code(s): R94.31 - Abnormal electrocardiogram [ECG] [EKG] <KELLIE Grant - Last Filed: 12/14/21 09:39> Status: Acute <KELLIE Grant - Last Filed: 12/14/21 09:39> Assessment and Plan: He does have prolonged QTc (524 ms on admission, 509ms on repeat EKG), improved after HD. Avoid QT prolonging agents. Continue to monitor by ECG. Patient quite bradycardic, QTC 474 mildly prolonged. <KELLIE Grant - Last Filed: 12/14/21 09:39> (4) End stage renal disease: Code(s): N18.6 - End stage renal disease <KELLIE Grant - Last Filed: 12/14/21 09:39> Status: Acute <KELLIE Grant - Last Filed: 12/14/21 09:39> Assessment and Plan: On HD. Management per Nephrology. <KELLIE Grant - Last Filed: 12/14/21 09:39> Assessment and Plan: Attending addendum: I agree with the above documentation and plan of care as outlined. LifeVest set up prior to discharge. <Ady Benavides MD - Last Filed: 12/14/21 12:19> Subjective Date/time seen: 12/14/21 09:11 Cardiology follow up for cardiomyopathy <KELLIE Grant - Last Filed: 12/14/21 09:39> Interval history: Feels well this morning. Alert and oriented. Denies any shortness of breath, chest pain, palpitations. <KELLIE Grant - Last Filed: 12/14/21 09:39> Review of Systems Review of Systems: All systems reviewed & are unremarkable except as noted in HPI and below (HPI) <KELLIE Grant - Last Filed: 12/14/21 09:39> Exam Const: General: cooperative, no acute distress, alert and awake <KELLIE Grant - Last Filed: 12/14/21 09:39> HENMT: Head: normal to inspection <KELLIE Grant - Last Filed: 12/14/21 09:39> Mouth: Yes moist mucous membranes <KELLIE Grant Last Filed: 12/14/21 09:39> Eyes: General: appearance normal, both eyes and all related structures <KELLIE Grant - Last Filed: 12/14/21 09:39> Sclera: sclerae normal <KELLIE Grant Last Filed: 12/14/21 09:39> Neck: Neck: supple and no
[2021-12-14 12:32] LABS: Glucose Point of Care 217 mg/dl (65-105)
[2021-12-14] MEDS: LACTULOSE 20 GM/30 ML UDC PO (13:04)
--- NOTE | 2021-12-14 14:05 | P.PNIM_ITS ---
Progress Note: A&P Assessment and Plan (1) Acute hyperkalemia: Code(s): E87.5 - Hyperkalemia Status: Acute Assessment and Plan: Patient initially presented to the ED on 12/07 and potassium was 4.5. Patient states he is compliant with dialysis but potassium on presentation here was 7.3. He was treated appropriately for hyperkalemia. He is also given Lokelma. He underwent dialysis 12/09 and 12/11. Potassium normalized now. Continue dialysis to control hyperkalemia. Renal diet. Appreciate Nephrology input. (2) Altered mental status: Code(s): R41.82 - Altered mental status, unspecified Status: Acute Assessment and Plan: Patient presents with complaints of dizziness and weakness. He remained confused despite having HD. COVID and influenza was negative. White count mildly elevated on admission 11 K. TSH normal. HIV negative. Hepatitis panel negative. CT brain showing no acute findings. US showing cirrhosis and Ammonia level elevated at 65 so lactulose started - suspect hepatic encephalopathy. Consider withdrawal. Consider sepsis with elevated lactic acid (normal now). BCx NGTD. Antibiotics remain on hold. Chest x-ray not consistent with pneumonia. UA and UDS ordered. GB distended but HIDA normal so felt distended GB related to cirrhosis. Continue Lactulose. Rifaximin added (not defined for HD but mostly remains intraluminal and 97% excreted in stool). (3) Troponin I above reference range: Code(s): R77.8 - Other specified abnormalities of plasma proteins Status: Acute Assessment and Plan: Trop up to 0.75. EKG showing NSR with possible inferior IA and inverted T in high lateral leads. Could be related to electrolyte issues. Echo showing EF 30- 35% with Grade I diastolic dysfunction, severe RV enlargement with reduced fxn, severe JACQUELYN and moderate TR. Cardiology consulted. Repeat Trop trending down. Continue ASA. Continue Lopressor. On Imdur/hydralazine Etiology unclear. Consider LifeVest at discharge. (4) Prolonged QT interval: Code(s): R94.31 - Abnormal electrocardiogram [ECG] [EKG] Status: Acute Assessment and Plan: As above. QTc prolonged probably related to his electrolyte abnormalities. Need to be very cautious with medications that prolong the QT. Continue to monitor on tele. Repeat EKG in am (5) Hypoglycemia: Code(s): E16.2 - Hypoglycemia, unspecified Status: Acute Assessment and Plan: A1c 5.6. Patient's blood sugar was 50 on admisison. He told a provider that he is diabetic but there are no medication listed on his home medication reconciliation. Glucose treated but dropped again to 40 yesterday morning ad treated. He was on dextrose but diet started now so will stop IV fluids. Continue with Accu-Cheks and hypoglycemic protocol. (6) Elevated LFTs: Code(s): R79.89 - Other specified abnormal findings of blood chemistry Status: Acute Assessment and Plan: Transaminases up and down. TBili better at 1.5. [place] related to cirrhosis and probably from right sided congestion. Abd US showing cirrhosis with ascites and portal HTN; mild GB thickening with normal CBD. His plt count low and MCV elevated also consistent with cirrhosis. CT A/P limited but shows nml GB, small volume of ascites and advanced cirrhosis with other chronic findings. HIDA normal to exclude GB pathology. (7) Cirrhosis: Code(s): K74.60 - Unspecified cirrhosis of liver Status: Acute Assessment and Plan: As above. (8) End stage renal disease: Code(s): N18.6 - End stage renal disease Status: Ac
--- NOTE | 2021-12-14 14:16 | PM.PNNEP ---
Progress Note: A&P Assessment and Plan (1) End stage renal disease: Code(s): N18.6 - End stage renal disease Status: Acute Assessment and Plan: the patient has end-stage renal disease. Most likely due to hypertension. He gets dialysis 3 times a week on Tuesdays and Saturdays. he is due for dialysis tomorrow as he is on an adjusted Schedule. (2) Hypertension: Code(s): I10 - Essential (primary) hypertension Status: Acute Assessment and Plan: The patient has hypertension. Blood pressure is much better. (3) Acute hyperkalemia: Code(s): E87.5 - Hyperkalemia Status: Acute Assessment and Plan: Potassium has been good (4) Hypoglycemia: Code(s): E16.2 - Hypoglycemia, unspecified Status: Acute Assessment and Plan: His sugars seem to be stabilizing. (5) General weakness: Code(s): R53.1 - Weakness Status: Acute Assessment and Plan: The patient has general weakness. This may be due to his heart or liver or kidney failure or any combination of the 3. His hemoglobin seems to be okay. (6) Erythropoietin deficiency anemia: Code(s): D63.1 - Anemia in chronic kidney disease Status: Acute Assessment and Plan: His hemoglobin is only slightly low. No need for EPO at this point. (7) Renal osteodystrophy: Code(s): N25.0 - Renal osteodystrophy Status: Acute Assessment and Plan: phosphorus is Up and down. Continue binders. (8) Troponin I above reference range: Code(s): R77.8 - Other specified abnormalities of plasma proteins Status: Acute Assessment and Plan: cardiology has been consulted for the high troponin. He feels this is due to the renal failure. Echo shows a moderately poor ejection fraction of 30-35%. (9) Elevated LFTs: Code(s): R79.89 - Other specified abnormal findings of blood chemistry Status: Acute Assessment and Plan: The patient has elevated liver enzymes. Ultrasound shows cirrhosis. Etiology of this is unclear. Possibly passive congestion from his volume overload. discussed with Dr. Rehman Subjective Date/time seen: 12/14/21 14:16 Interval history: The patient feels better today. By the end of dialysis he was much better as well. No chest pain or shortness of breath today. He is eating but only fairly well. Exam Narrative: WDWN in NAD skin no rash or subQ nodules head ncat lungs Fairly clear cor reg , mildly slow. no rub , 2/6 systolic murmur. abd BS+ nontender and soft . ext no edema or cyanosis Objective Data Vital Signs Vital Signs: Vital Signs - 24 hr 12/13/21 14:50 12/13/21 14:20 12/13/21 14:40 Temperature Pulse Rate 54 L 49 L 57 L Respiratory Rate 20 Blood Pressure 112/73 108/65 Pulse Oximetry Oxygen Delivery Oxygen Flow Rate 12/13/21 15:00 12/13/21 15:20 12/13/21 15:40 Temperature Pulse Rate 60 60 65 Respiratory Rate Blood Pressure 121/66 101/62 105/65 Pulse Oximetry Oxygen Delivery Oxygen Flow Rate 12/13/21 16:00 12/13/21 16:00 12/13/21 16:20 Temperature Pulse Rate 70 70 67 Respiratory Rate Blood Pressure 123/78 110/67 Pulse Oximetry Oxygen Delivery Oxygen Flow Rate 12/13/21 16:40 12/13/21 17:00 12/13/21 17:10 Temperature Pulse Rate 73 68 69 Respiratory Rate Blood Pressure 91/62 L 115/67 110/72 Pulse Oximetry Oxygen Delivery Oxygen Flow Rate 12/13/21 17:10 12/13/21 20:00 12/13/21 20:00 Temperature 36.8 C 36.4 C Pulse Rate 69 72 Respiratory Rate 18 18 Blood Pressure 110/72 153/61 H Pulse Oximetry 99 99 Oxygen Delivery Nasal Cannula Oxygen Flow Rate 2 12/14/21 00:00 12/13/21 18:00 12/13/21 20:00 Temperature 36.4 C Pulse Rate 57 L 74 70 Respiratory Rate 16 Blood Pressure 111/62 Pulse Oximetry 99 Oxygen Deliv
--- NOTE | 2021-12-14 15:10 | PC.NURSE ---
On 12/14/21, the student, [Chela Smith], provided care and completed [facility] documentation on this patient. I have reviewed the student's documentation and agree with the findings.
[2021-12-14 16:21] LABS: Glucose Point of Care 151 mg/dl (65-105)
[2021-12-14 19:49] LABS: Glucose Point of Care 181 mg/dl (65-105)
--- NOTE | 2021-12-14 23:11 | PC.NURSE ---
Pt arrived to floor at 2300 into room 256 from IMU. PRN meds will be given as needed.
[2021-12-14] MEDS: ACETAMINOPHEN 325 MG TABLET 650 MG PO (23:27)
[2021-12-15] VITALS (7 sets, daily range): BP systolic 126–131; BP diastolic 70–82; PULSE 53–72; RESP 18; TEMP 37.1; O2SAT 95–99
[2021-12-15] MEDS: diphenhydrAMINE HCl CAP 25 MG CAPSULE 50 MG PO (02:46)
[2021-12-15 05:03] LABS: Complement Total CH50 >60 U/mL (31-60)
[2021-12-15 05:08] LABS: Basophils Percent Auto 0.3 % (0.2-1.2); Eosinophils Absolute Auto 0.2 K/mm3 (0-0.3); Eosinophils Percent Auto 2.6 % (0-4.4); Hematocrit 38.7 % (42.0-52.0); Hemoglobin 12.5 g/dL (14.0-18.0); Immature Granulocyte Absolute 0.03 K/mm3 (0.00-0.031); Immature Granulocyte Percent A 0.4 % (0-0.5); Immature Platelet Fraction Pct 4.3 % (0.9-11.2); Lymphocytes Absolute Auto 0.85 K/mm3 (0.9-3.2); Lymphocytes Percent Auto 11.5 % (18.3-44.2); Mean Corpuscular HGB Conc 32.3 g/dl (32-36); Mean Corpuscular Hemoglobin 32.1 pg (26-34); Mean Corpuscular Volume 99.2 fl (80-100); Mean Platelet Volume 10.5 fl (7.4-10.4); Monocytes Absolute Auto 1.1 K/mm3 (0.1-0.6); Monocytes Percent Auto 15.3 % (2.6-8.5); Neutrophils Absolute Auto 5.2 K/mm3 (1.3-6.7); Neutrophils Percent Auto 69.9 % (45.5-73.1); Nucleated Red Blood Cells Perc 0.5 % (0.0-0.2); Platelet Count Result 143 k/mm3 (150-375); Red Cell Distribution Width 18.6 % (11.5-14.5); White Blood Count 7.4 K/mm3 (4.5-10.0)
[2021-12-15 05:18] LABS: Alanine Aminotransferase 77 U/L (6-50); Albumin Level 3.9 g/dL (3.5-5.1); Alkaline Phosphatase 383 U/L (38-126); Anion Gap 18 mmol/L (8-16); Aspartate Amino Transferase 64 U/L (17-59); Bilirubin,Total 1.5 mg/dL (0.2-1.3); Blood Urea Nitrogen 67 mg/dL (9-20); Calcium 8.9 mg/dL (8.4-10.2); Carbon Dioxide 26 mmol/L (22-30); Chloride 91 mmol/L (98-107); Estimated CRCL calculation 7 ml/min; Estimated Glomerular Filt Rate 7; Glucose 125 mg/dL (65-110); Magnesium 2.6 mg/dL (1.6-2.3); Potassium 3.9 mmol/L (3.4-5.0); Sodium 135 mmol/L (137-145)
[2021-12-15 05:19] LABS: Ammonia 55 umol/L (9-30)
[2021-12-15 05:26] LABS: INR 1.4; Prothrombin Time 16.4 Seconds (11.1-14.7)
[2021-12-15 08:45] LABS: Glucose Point of Care 113 mg/dl (65-105)
--- NOTE | 2021-12-15 08:59 | PM.PNCARD ---
Progress Note: A&P Assessment and Plan (1) Troponin I above reference range: Code(s): R77.8 - Other specified abnormalities of plasma proteins Status: Acute Assessment and Plan: This does not represent ACS, probably secondary to renal failure type 2 infarction. (2) Cardiomyopathy: Code(s): I42.9 - Cardiomyopathy, unspecified Status: Acute Assessment and Plan: EF has declined compared to prior study, EF 30-35% by recent echo, previously 40-45%. Etiology remains unclear, possiblly secondary to CAD. He is established with a steel layout worker at [facility], Dr. Rudolph with whom he will follow for further ischemic evaluation - he is currently asymptomatic in this regard. Unfortunately, he is unable to be placed on optimal GDMT because of his ESRD. Cannot take MRA, SGLT2 inhibitor, PRAVEEN/ARNI. Continue metoprolol, change to Toprol XL 50 mg daily prior to discharge. Continue nitrate/hydralazine. HD for volume management. Continue hydralazine 10 mg t.i.d. as BP permits. Ideally, Bidil 37.5mg TID would be preferable if able to obtain as an outpatient. Given EF less than 35%, LifeVest recommended and is now in place. He reports compliance with cardiology follow up and understands this is necessary in order to be considered for ICD in the future. Patient appears to be clinically euvolemic. Altered mental status has improved today. (3) Prolonged QT interval: Code(s): R94.31 - Abnormal electrocardiogram [ECG] [EKG] Status: Acute Assessment and Plan: He does have prolonged QTc (524 ms on admission, 509ms on repeat EKG), improved after HD. Avoid QT prolonging agents. Continue to monitor by ECG. Patient quite bradycardic, QTC 474 mildly prolonged. (4) End stage renal disease: Code(s): N18.6 - End stage renal disease Status: Acute Assessment and Plan: On HD. Management per Nephrology. Plan Subjective Date/time seen: 12/15/21 08:59 Cardiology follow up for cardiomyopathy Continues to feel well. No shortness of breath or lower extremity edema. No palpitations, chest pain. Has been fitted for LifeVest. Review of Systems Review of Systems: All systems reviewed & are unremarkable except as noted in HPI and below (HPI) Exam Const: General: cooperative, no acute distress, alert and awake HENMT: Head: normal to inspection Mouth: Yes moist mucous membranes Eyes: General: appearance normal, both eyes and all related structures Sclera: sclerae normal Neck: Neck: supple, JVD and no JVD Resp: Effort & Inspection: normal respiratory effort Auscultation: no crackles, no rales and diminished lung sounds (bases) bilateral Other: On supplemental oxygen via nasal cannula. Decreased breath sounds in bases Cardio: Rate: regular rate Rhythm: regular rhythm Heart sounds: Murmur heart sound present systolic Skin: General skin exam: normal color Neuro: Speech: normal speech Other: Alert and oriented x3 Extrem: General: no edema Psych: Appearance: grossly normal Mental Status: mental status grossly normal Speech and movement: Normal speech and movement present Objective Data Vital Signs Vital Signs: Vital Signs - 24 hr 12/14/21 09:00 12/14/21 09:01 12/14/21 09:28 Temperature Pulse Rate 62 Respiratory Rate Blood Pressure Pulse Oximetry 97 99 Oxygen Delivery Nasal Cannula Nasal Cannula Oxygen Flow Rate 3 2 12/14/21 10:00 12/14/21 12:00 12/14/21 12:00 Temperature Pulse Rate 64 67 Respiratory Rate Blood Pressure Pulse Oximetry 97 Oxygen Delivery Nasal Cannula Oxygen Flow Rate 2 12/14/21 12:00 12/14/21 14:00 12/14/21 16:00 Temperature 36.5 C Pulse Rate 67 72 71 Respiratory Rate 16 Blood Pressure 114/61 Pulse Oximetry 100 Oxygen Delivery Oxygen Flow Rate 12/14/21 16:00 12/14/21 16:00 12/14/21 18:00 Temperature 36.5 C Pulse Rate 72 70 Respiratory Rate 20 Blood Pressure 126/72 P
--- NOTE | 2021-12-15 09:26 | PCOTNOTE ---
Patient refused OT at this time, stated he just fell back asleep this morning at 6am after being up since 3am. Patient instructed over importance of participating with therapy, patient reports being Independent with ADLs and mobility. Patient educated over therapy needing to see him participate in order to make recommendations and build patient's strength and endurance for optimal benefits prior to d/c. Patient requested therapist come back later to work with him for OT. Will continue plan of care.
[2021-12-15] MEDS: FLUTICASONE/UMECLIDIN/VILANTER 100-62.5-25 MCG ELLIPTA 1 PUFF INHALATION (09:34)
[2021-12-15] MEDS: hydrALAZINE 10 MG TABLET PO ×2 (09:42→12:38)
[2021-12-15] MEDS: METOPROLOL TARTRATE 25 MG TABLET PO (09:42)
[2021-12-15] MEDS: rifAXIMin 550 MG TABLET PO (09:42)
[2021-12-15] MEDS: LACTULOSE 20 GM/30 ML UDC PO (09:42)
[2021-12-15] MEDS: ASPIRIN 81 MG CHEWABLE TABLET PO (09:42)
[2021-12-15] MEDS: ISOSORBIDE MONONITRATE 30 MG TAB.ER.24H PO (09:42)
--- NOTE | 2021-12-15 11:36 | P.PNNP_ITS ---
Progress Note: A&P Assessment and Plan (1) End stage renal disease: Code(s): N18.6 - End stage renal disease Status: Acute Assessment and Plan: * plan next HD session on Saturday to get back on T/T/S schedule * follow electrolytes, volume status, and clearance (2) Hypertension: Code(s): I10 - Essential (primary) hypertension Status: Acute Assessment and Plan: * better/reasonable control * follow trend of hemodynamics (3) Erythropoietin deficiency anemia: Code(s): D63.1 - Anemia in chronic kidney disease Status: Acute Assessment and Plan: * H/H supratherapeutic * Epogen on hold * follow H/H (4) Renal osteodystrophy: Code(s): N25.0 - Renal osteodystrophy Status: Acute Assessment and Plan: * due to ESRD * follow parameters * on binders (5) General weakness: Code(s): R53.1 - Weakness Status: Acute Assessment and Plan: * probably multifactorial: * cardiac disease/cardiomyopathy * liver cirrhosis * kidney disease * combination of all 3(?) * continue supportive therapy (6) Elevated LFTs: Code(s): R79.89 - Other specified abnormal findings of blood chemistry Status: Acute Assessment and Plan: * as noted by admission blood tests * abdominal ultrasound with cirrhosis * possibly secondary to passive congestion from volume overload(?) * follow trend Will continue to follow. Subjective Date/time seen: 12/15/21 11:36 Chart reviewed -- assuming care from Dr. Guevara; appears to be doing reasonably wel at the time of my visitl; no apparent distress or new complaints/concenrs voiced currently ; no issues/events overnight or earlier this morning. Exam Narrative: General: WD/WN AA male in NAD Heart: normal S1 and S2; no rub Lungs: clear to auscultation Abdomen: soft, nontender, nondistended, positive bowel sounds Extremities: no cyanosis or clubbing; no edema Skin: warm and dry Objective Data Vital Signs Vital Signs: Vital Signs Temp Pulse Resp BP Pulse Ox O2 Del Method O2 Flow Rate 12/15/21 09:42 72 12/15/21 09:40 72 126/70 12/15/21 05:08 37.1 C 53 L 18 131/82 99 12/15/21 04:03 68 12/15/21 00:01 69 12/14/21 23:09 36.6 C 72 18 124/74 100 12/14/21 20:00 75 12/14/21 20:00 100 Nasal Cannula 2 12/14/21 20:00 36.4 C 77 18 118/68 100 12/14/21 18:00 70 12/14/21 16:00 36.5 C 72 20 126/72 97 12/14/21 16:00 97 Nasal Cannula 2 12/14/21 16:00 71 12/14/21 14:00 72 12/14/21 12:00 36.5 C 67 16 114/61 100 12/14/21 12:00 97 Nasal Cannula 2 12/14/21 12:00 67 Intake/Output Intake/Output: Intake & Output 12/12/21 12/13/21 12/14/21 12/15/21 23:59 23:59 23:59 23:59 Intake Total 240 1420 800 590 Output Total 100 2500 0 Balance 140 -1080 800 590 Meds/Results Medications: Active Medications Generic Name Dose Route Start Last Admin Trade Name Freq PRN Reason Stop Dose Admin Acetaminophen 650 mg 12/14/21 23:14
--- NOTE | 2021-12-15 11:36 | PM.PNNEP ---
Progress Note: A&P Assessment and Plan (1) End stage renal disease: Code(s): N18.6 - End stage renal disease Status: Acute Assessment and Plan: plan next HD session on Saturday to get back on T/T/S schedule follow electrolytes, volume status, and clearance (2) Hypertension: Code(s): I10 - Essential (primary) hypertension Status: Acute Assessment and Plan: better/reasonable control follow trend of hemodynamics (3) Erythropoietin deficiency anemia: Code(s): D63.1 - Anemia in chronic kidney disease Status: Acute Assessment and Plan: H/H supratherapeutic Epogen on hold follow H/H (4) Renal osteodystrophy: Code(s): N25.0 - Renal osteodystrophy Status: Acute Assessment and Plan: due to ESRD follow parameters on binders (5) General weakness: Code(s): R53.1 - Weakness Status: Acute Assessment and Plan: probably multifactorial: cardiac disease/cardiomyopathy liver cirrhosis kidney disease combination of all 3(?) continue supportive therapy (6) Elevated LFTs: Code(s): R79.89 - Other specified abnormal findings of blood chemistry Status: Acute Assessment and Plan: as noted by admission blood tests abdominal ultrasound with cirrhosis possibly secondary to passive congestion from volume overload(?) follow trend Will continue to follow. Subjective Date/time seen: 12/15/21 11:36 Chart reviewed -- assuming care from Dr. Guevara; appears to be doing reasonably wel at the time of my visitl; no apparent distress or new complaints/concenrs voiced currently ; no issues/events overnight or earlier this morning. Exam Narrative: General: WD/WN AA male in NAD Heart: normal S1 and S2; no rub Lungs: clear to auscultation Abdomen: soft, nontender, nondistended, positive bowel sounds Extremities: no cyanosis or clubbing; no edema Skin: warm and dry Objective Data Vital Signs Vital Signs: Vital Signs Temp Pulse Resp BP Pulse Ox O2 Del Method O2 Flow Rate 12/15/21 09:42 72 12/15/21 09:40 72 126/70 12/15/21 05:08 37.1 C 53 L 18 131/82 99 12/15/21 04:03 68 12/15/21 00:01 69 12/14/21 23:09 36.6 C 72 18 124/74 100 12/14/21 20:00 75 12/14/21 20:00 100 Nasal Cannula 2 12/14/21 20:00 36.4 C 77 18 118/68 100 12/14/21 18:00 70 12/14/21 16:00 36.5 C 72 20 126/72 97 12/14/21 16:00 97 Nasal Cannula 2 12/14/21 16:00 71 12/14/21 14:00 72 12/14/21 12:00 36.5 C 67 16 114/61 100 12/14/21 12:00 97 Nasal Cannula 2 12/14/21 12:00 67 Intake/Output Intake/Output: Intake & Output 12/12/21 12/13/21 12/14/21 12/15/21 23:59 23:59 23:59 23:59 Intake Total 240 1420 800 590 Output Total 100 2500 0 Balance 140 -1080 800 590 Meds/Results Medications: Active Medications Generic Name Dose Route Start Last Admin Trade Name Freq PRN Reason Stop Dose Admin Acetaminophen 650 mg 12/14/21 23:14 12/14/21 23:27 Acetaminophen 325 Mg Tablet PO 650 mg Q4H PRN Administration Mild Pain (1-3) Albuterol 5 mg 12/12/21 16:18 12/13/21 15:03 Albuterol Sulfate Neb 2.5 Mg/3 Ml Inh INHALATION 5 mg Q6HRT PRN Administration Shortness Of Breath Or Wheezing Aspirin 81 mg 12/10/21 11:10 12/15/21 09:42 Aspirin 81 Mg Chewable Tablet PO 81 mg DAILY@0800 HARSH Administration Dextrose 12.5 gm 12/09/21 16:04 12/11/21 05:32 Dextrose 50% 25 Gm/50 Ml Syringe IV PUSH 12.5 gm PRN PRN Administration Hypoglycemia Protocol Fluticasone/Umeclidinium/Vilanterol 1 puff 12/10/21 09:00 12/15/21 09:34 Fluticasone/Umeclidin/Vilanter 100-62.5-25 Mcg Ellipta INHALATION 1 puff DAILY HARSH Administration Glucagon 1 mg 12/09/21 16:04 Glucagon For Inj 1 Mg Vial IM PRN PRN Hypoglycemia Protocol
[2021-12-15 12:02] LABS: Glucose Point of Care 190 mg/dl (65-105)
--- NOTE | 2021-12-15 13:13 | PCPTNOTE ---
Attempted to see patient for PT, however patient refused. Patient reported he was up all night and just got to sleep at 10 this morning, and just wants to rest at this time.
--- NOTE | 2021-12-15 13:16 | PM.DS ---
DS: Admitting Diagnosis Discharge Date 12/15/21 Admitting Diagnosis Altered mental status DS: Discharge Diagnosis Discharge Diagnosis (1) Acute hyperkalemia: Code(s): E87.5 - Hyperkalemia Status: Acute (2) Altered mental status: Code(s): R41.82 - Altered mental status, unspecified Status: Acute (3) Troponin I above reference range: Code(s): R77.8 - Other specified abnormalities of plasma proteins Status: Acute (4) Prolonged QT interval: Code(s): R94.31 - Abnormal electrocardiogram [ECG] [EKG] Status: Acute (5) Hypoglycemia: Code(s): E16.2 - Hypoglycemia, unspecified Status: Acute (6) Elevated LFTs: Code(s): R79.89 - Other specified abnormal findings of blood chemistry Status: Acute (7) Cirrhosis: Code(s): K74.60 - Unspecified cirrhosis of liver Status: Acute (8) End stage renal disease: Code(s): N18.6 - End stage renal disease Status: Acute (9) Hypertension: Code(s): I10 - Essential (primary) hypertension Status: Acute (10) Anxiety: Code(s): F41.9 - Anxiety disorder, unspecified Status: Acute (11) COPD (chronic obstructive pulmonary disease): Code(s): J44.9 - Chronic obstructive pulmonary disease, unspecified Status: Acute (12) Chronic respiratory failure: Code(s): J96.10 - Chronic respiratory failure, unspecified whether with hypoxia or hypercapnia Status: Acute (13) Anemia of chronic disease: Code(s): D63.8 - Anemia in other chronic diseases classified elsewhere Status: Acute (14) Hyperlipidemia: Code(s): E78.5 - Hyperlipidemia, unspecified Status: Acute (15) General weakness: Code(s): R53.1 - Weakness Status: Acute DS: Summary Hospital Course Reason for hospitalization: This is a 56-year-old male patient who has end-stage renal disease and is on dialysis.? The patient is on dialysis Saturday and Saturday.? The patient was brought to the emergency department by the ambulance from the dialysis center because of generalized weakness and lethargy since waking up this morning.? He denies any fever chills nausea vomiting.? He is complaining of aching all over and feeling tired.? He typically wears oxygen at 4 L per nasal cannula at home.? He is on the same oxygen here.? The patient thought that he missed 2 dialysis but the notes here state that he had been going to his dialysis and has not missed any.? Nephrology has been consulted.? The patient has been complaining of pain at his fistula site.? He is currently receiving hemodialysis and ICU and I did not see his fistula site because of the tape but I did not see any redness outside of that.? And has a positive bruit and thrill.? His white count is noted to be 11.0.? His H&H is 12.2 and 39.2.? Which is his baseline.? Platelet count 133.? ABGs pH 7.473 and bicarb 26.2.? Patient's potassium was initially 7.3 and is now 5.3.? His creatinine is 9.6 which is his baseline.? BUN is 75.? Lactic is 5.5.? Blood glucose 141.? The patient is diabetic.? Liver enzymes are elevated total bilirubin 1.9, AST 126, ALT 69, alkaline phosphatase 378.? Troponin 0.635 and 0.655.? Total creatinine kinase 186.? Thyroid normal vitamin-D normal.? He is negative for COVID.? Chest x-ray was read as mild atelectasis in the lower lung zones.? Cardiomegaly.? The patient was given IV Tylenol, D50, calcium gluconate, IV insulin, Lokelma, IV fluids, and IV insulin.? The patient is being admitted to inpatient status initially and then was changed to observation status.? On the date of service of 12/09/2021. Hospital Course: # acute hyperkalemia: Delete Patient initially presented to the ED on 12/07 and potassium was 4.5.? Patient states he is compliant with dialysis but potassium on presentation here was 7.3.? He was treated appropriately for hyperkalemia.? He is also given Lokelma.? He underwent dialysis during hospital
--- NOTE | 2021-12-15 14:00 | PCOTNOTE ---
Per PRODUCT DEVELOPMENT CONSULTANT, patient declined second attempt for treatment. Will continue OT plan of care as appropriate.
== END 2021-12-15 15:55 | disposition home or self-care (01) | DRG 640 ==
LOC: ANHED 09:51 → ANHICU 14:11 → ANHIMU 12-10 15:19 → ANH2MED 12-14 23:03
PROVIDERS: Internal Medicine; Internal Medicine Nephrology; Nurse Practitioner; Admitting Provider Family Medicine; Emergency Provider Emergency Medicine; Visit Provider Internal Medicine
DX: E87.5 Hyperkalemia (principal); N18.6 End stage renal disease; I12.0 Hypertensive chronic kidney disease with stage 5 chronic kidney disease or end stage renal disease; I42.9 Cardiomyopathy, unspecified; J96.10 Chronic respiratory failure, unspecified whether with hypoxia or hypercapnia; K76.82 Hepatic encephalopathy; R53.1 Weakness; D63.1 Anemia in chronic kidney disease; Z20.822 Contact with and (suspected) exposure to COVID-19; N25.0 Renal osteodystrophy; K74.60 Unspecified cirrhosis of liver; E16.2 Hypoglycemia, unspecified; R77.8 Other specified abnormalities of plasma proteins; I25.10 Atherosclerotic heart disease of native coronary artery without angina pectoris; J44.9 Chronic obstructive pulmonary disease, unspecified; E78.5 Hyperlipidemia, unspecified; F41.9 Anxiety disorder, unspecified; R94.31 Abnormal electrocardiogram [ECG] [EKG]; I25.2 Old myocardial infarction; Z79.899 Other long term (current) drug therapy; Z87.891 Personal history of nicotine dependence; Z99.2 Dependence on renal dialysis; Z99.81 Dependence on supplemental oxygen
CPT/HCPCS: 36415; 36600; 70450; 71045; 74176; 76705; 76775; 78227; 80048; 80053; 80069; 80076; 82140; 82306; 82550; 82607; 82746; 82805; 82948; 83010; 83036; 83605; 83615; 83735; 84100; 84443; 84484; 85025; 85027; 85055; 85610; 85652; 85730; 86038; 86140; 86160; 86162; 86334; 86703; 86704; 86706; 86803; 87040; 87340; 87804; 93005; 93306; 94640; 96361; 96372; 96374; 96375; 96376; 97110; 97116; 97161; 97165; 97530; 99285; A9270; A9537; C9803; G0257; G0378; G0432; J0360; J0610; J1630; J1815; J2805; J7030; J7042; P9047; U0003; U0005

== ENCOUNTER 2021-12-21 11:07 | Observation (INO) | payer OTHER, SELFPAY ==
[2021-12-21] VITALS (15 sets, daily range): BP systolic 137–170; BP diastolic 80–98; PULSE 87–99; RESP 13–20; TEMP 35.7–36.4; O2SAT 97–100; BMI 20.7
--- NOTE | ~2021-12-21 | CT_ITS ---
EXAMINATION: CT brain wo con DATE: 12/21/2021 12:51 INDICATION: Altered mental status. TECHNIQUE: Computed tomography (CT) of the head was performed without intravenous contrast. The mA wa s adjusted according to patient size. Iterative reconstruction technique was employed. The dose-lengt h product was 605.33 mGy-cm. COMPARISON: Head CT 12/11/2021 FINDINGS: There are old infarcts in the cerebellum bilaterally. There are old infarcts in the lew an d bilateral thalami. There are scattered areas of low attenuation in the cerebral white matter. The v entricles are normal in size. There is mild mucosal thickening in the paranasal sinuses. The orbits a re normal. The mastoid air cells are normal. IMPRESSION: 1. Old infarcts in the cerebellum, thalami, and lew. 2. Mild nonspecific cerebral white matter disease, which likely represents chronic small vessel ische celina disease. Reviewed, dictated and finalized at location A. IMPRESSION: 1. Old infarcts in the cerebellum, thalami, and lew. 2. Mild nonspecific cerebral white matter disease, which likely represents corporate health consultant farrukh small vessel ischemic disease.
--- NOTE | ~2021-12-21 | XR_ITS ---
EXAMINATION: XR chest 1V portable DATE: 12/21/2021 14:20 INDICATION: Transient alteration of awareness. TECHNIQUE: A single frontal view of the chest was obtained. COMPARISON: Chest single view 12/10/2021, CT abdomen and pelvis 12/11/2021 FINDINGS: The patient is rotated to his right. There is no pneumonia, pleural effusion, or pneumothor ax. Cardiomegaly is noted. IMPRESSION: 1. Cardiomegaly. Reviewed, dictated and finalized at location A. IMPRESSION: 1. Cardiomegaly.
--- NOTE | 2021-12-21 11:22 | ECG_ITS ---
Measurements Intervals Wagner Rate: 93 P: 67 NV: 178 QRS: -73 QRSD: 118 T: 103 QT: 398 QTc: 497 Interpretive Statements SINUS RHYTHM WITH FREQUENT SUPRAVENTRICULAR PREMATURE COMPLEXES LEFT ANTERIOR FASCICULAR BLOCK [QRS AXIS <= -45, QR IN I, RS IN II] PROBABLE LATERAL MYOCARDIAL INFARCTION , OF INDETERMINATE AGE [35 ms Q WAVE IN I/aVL/V5/V6] COMPARED TO ECG 12/13/2021 14:23:35 SINUS RHYTHM NOW PRESENT Electronically Signed On 12-21-2021 15:00:50 CDT by Gaetano Sibley M.D.
--- NOTE | 2021-12-21 12:00 | ED.AMS ---
HPI - Altered Mental Status General Chief Complaint: Altered Mental Status <Kelly Drew PA-C - Last Filed: 12/21/21 19:44> Stated Complaint: Altered mental status <ELAINE Topete Last Filed: 12/21/21 19:44> Time Seen by Provider: 12/21/21 11:26 <ELAINE Topete Last Filed: 12/21/21 19:44> Source: patient, EMS and old records reviewed <Kelly Drew PA-C - Last Filed: 12/21/21 19:44> Mode of arrival: EMS <ELAINE Topete Last Filed: 12/21/21 19:44> Limitations: altered mental status and clinical condition <ELAINE Topete Last Filed: 12/21/21 19:44> History of Present Illness HPI narrative: Patient is a 56-year-old male who presents to the ED via EMS with report of AMS. Patient has Hx of chronic hypoxic resp failure on 3L O2, ESRD on dialysis, T//Sat. Per EMS report, patient became altered and confused today at his dialysis appointment. He was then sent here. He received 3hrs 15 minutes of his 4 hour dialysis treatment. Per patient's records, he is frequently altered. A&O X 2 currently. Patient denies any acute complaints. <Kelly Drew PA-C - Last Filed: 12/21/21 19:44> Related Data Home Medications: Home Medications Medication Instructions Recorded Confirmed albuterol sulfate 90 mcg/actuation 2 puff inhalation QID PRN 12/09/21 12/21/21 aerosol inhaler Shortness Of Breath atorvastatin 40 mg tablet 40 mg PO DAILY 12/09/21 12/21/21 fluticasone fur. 100 mcg-umeclid 1 inh inhalation DAILY 12/09/21 12/21/21 62.5 mcg-vilant 25 mcg inhalat.powder (Trelegy Ellipta) lorazepam 1 mg tablet See Rx Instructions .Route .COMPLEX 12/09/21 12/21/21 sevelamer carbonate 800 mg tablet 1,600 mg PO TID 12/21/21 12/21/21 (Renvela) <Kelly Drew PA-C - Last Filed: 12/21/21 19:44> Allergies/Adverse Reactions: Allergies Allergy/AdvReac Type Severity Reaction Status Date / Time No Known Allergies Allergy Verified 12/21/21 11:20 <Kelly Drew PA-C - Last Filed: 12/21/21 19:44> Review of Systems Review of Systems: ROS unobtainable: Yes unobtainable due to mental status <Kelly Drew PA-C - Last Filed: 12/21/21 19:44> [facility] Past Medical History Medical History: Medical History Anemia of chronic disease Anxiety AV fistula Chronic respiratory failure Cocaine abuse COPD (chronic obstructive pulmonary disease) End stage renal disease Dialysis Saturday. Erythropoietin deficiency anemia History of CVA (cerebrovascular accident) Hyperlipidemia Hypertension Renal osteodystrophy Troponin I above reference range <Kelly Drew PA-C - Last Filed: 12/21/21 19:44> Surgical History Surgical History: Surgical History S/P dialysis catheter insertion left arm <Kelly Drew PA-C - Last Filed: 12/21/21 19:44> Family History Family History: Family History Unknown Family history unknown <Kelly Drew PA-C - Last Filed: 12/21/21 19:44> Social History Social History: Social History Social History: The patient is single and disabled. He is a former smoker. He is listed as a full code. His mother Lacie rollins is listed as his slot machine department floorperson. He lives with his mother. He has 2 children. He stated that he used to use cocaine quite frequently. Any feels this is what has ruined his heart and his kidneys. Code status full code Smoking packs per day: 1 Smoking cigarettes per day: 20.0 Years smoked: 40 Smoking pack-years: 40.00 Smoking status: Former smoker Tobacco type: cigarettes Alcohol intake: never Substance use: never Spiritual care concerns: No
[2021-12-21 12:31] LABS: Basophils Absolute Auto 0.1 K/mm3 (0.0-0.1); Basophils Percent Auto 0.7 % (0.2-1.2); Eosinophils Absolute Auto 0.1 K/mm3 (0-0.3); Eosinophils Percent Auto 0.9 % (0-4.4); Hematocrit 36.7 % (42.0-52.0); Hemoglobin 11.6 g/dL (14.0-18.0); Immature Granulocyte Absolute 0.02 K/mm3 (0.00-0.031); Immature Granulocyte Percent A 0.3 % (0-0.5); Lymphocytes Absolute Auto 0.77 K/mm3 (0.9-3.2); Lymphocytes Percent Auto 10.4 % (18.3-44.2); Mean Corpuscular HGB Conc 31.6 g/dl (32-36); Mean Corpuscular Hemoglobin 31.4 pg (26-34); Mean Corpuscular Volume 99.2 fl (80-100); Mean Platelet Volume 10.3 fl (7.4-10.4); Monocytes Absolute Auto 1.3 K/mm3 (0.1-0.6); Monocytes Percent Auto 17.3 % (2.6-8.5); Neutrophils Absolute Auto 5.2 K/mm3 (1.3-6.7); Neutrophils Percent Auto 70.4 % (45.5-73.1); Platelet Count Result 128 k/mm3 (150-375); Red Cell Distribution Width 18.2 % (11.5-14.5); White Blood Count 7.4 K/mm3 (4.5-10.0)
[2021-12-21 12:36] LABS: Alveolar/Arterial O2 Gradient 57.6 mmHg; Base Excess ABG 3.5 mEq/l (+/-2.0); Carboxyhemoglobin 1.1 % THb (0-2.0); Fractional Inspired Oxygen 28 %; HCO3 ABG 27.3 mEq/l (22.0-26.0); Methemoglobin ABG 0.2 %THb (0-1.5); Oxygen Content ABG 17.1 %vol (16.0-22.0); Oxygen Saturation ABG 97.7 % (95.0-100.0); Oxyhemoglobin 95.3 % THb (90.0-100.0); PCO2 ABG 38.5 mmHg (35.0-45.0); PO2 ABG 96.6 mmHg (80.0-100.0); PO2 FiO2 Ratio Arterial Blood 3.45 %; Reduced Hemoglobin 3.4 %THb (0-5.0); Total Hemoglobin 12.7 g/dL (12.0-18.0); pH ABG 7.468 (7.350-7.450)
[2021-12-21 12:38] LABS: Device NASAL CANNULA; Modified Allen's Test Pass; Site Drawn RIGHT RADIAL
[2021-12-21 12:41] LABS: Alanine Aminotransferase 59 U/L (6-50); Albumin Level 3.8 g/dL (3.5-5.1); Alkaline Phosphatase 386 U/L (38-126); Ammonia 10 umol/L (9-30); Anion Gap 14 mmol/L (8-16); Aspartate Amino Transferase 62 U/L (17-59); Bilirubin,Total 1.8 mg/dL (0.2-1.3); Blood Urea Nitrogen 47 mg/dL (9-20); Calcium 9.6 mg/dL (8.4-10.2); Carbon Dioxide 32 mmol/L (22-30); Chloride 95 mmol/L (98-107); Estimated CRCL calculation 10 ml/min; Estimated Glomerular Filt Rate 10; Glucose 101 mg/dL (65-110); Potassium 4.4 mmol/L (3.4-5.0); Sodium 141 mmol/L (137-145)
[2021-12-21 12:42] LABS: INR 1.2; Partial Thromboplastin Time 31.4 SECONDS (22.3-36.8); Prothrombin Time 14.8 Seconds (11.1-14.7)
[2021-12-21 14:33] LABS: Glucose Point of Care 71 mg/dl (65-105)
--- NOTE | 2021-12-21 14:49 | PC.NURSE ---
diabetic food tray ordered
--- NOTE | 2021-12-21 16:42 | PM.IMHP ---
H&P: HPI History of Present Illness Date/Time: 12/21/21 16:42 Chief Complaint: Altered mental status Narrative: This is a 56-year-old male patient who has end-stage renal disease and has dialysis on Saturday. The patient has chronic hypoxia with chronic respiratory failure and is on oxygen at 3 L per nasal cannula consistently. The patient was at dialysis today and he received 3 hours and 50 minutes of his 4 hour dialysis treatment. The patient became confused during the treatment. The patient is just lethargic at this point. He is answering questions without difficulty for me. Although initially he thought that he was at [facility]. I had a re orientated him to the hospital that he was at. He told me his name and the date. The patient tells me that he does live at home with his mother. His H&H is 11.6 and 36.7. Creatinine is 7.1. Blood sugars 71. Liver enzymes are chronically elevated. He is at his baseline. Ammonia level was normal. Patient is being admitted for observation status on the date of service of 12/21/2021. Review of Systems Review of Systems: See HPI All systems reviewed & are unremarkable except as noted in HPI and below Constitutional: Constitutional: Reports as per HPI and Reports no additional constitutional complaints Eyes: Eyes: Reports as per HPI and Reports no additional eye complaints ENT: Reports system reviewed and no additional complaints, except as documented and Reports Normal hearing present Cardiovascular: Cardiovascular: Reports no additional cardiovascular complaints Respiratory: Respiratory: Reports no additional respiratory complaints and Reports no additional respiratory complaints Gastrointestinal: Gastrointestinal: Reports as per HPI and Reports no additional gastrointestinal complaints Musculoskeletal: Musculoskeletal: Reports no additional musculoskeletal complaints Integumentary/Breasts: Skin/Breast: Reports system reviewed and no additional complaints, except as docu and Reports as per HPI Neurologic: Reports system reviewed and no additional complaints, except as documented, Reports as per HPI and Reports Normal hearing present Psychiatric: Psychiatric: Reports no additional psychiatric complaints and Reports as per HPI Endocrine: Endocrine: Reports no additional endocrine complaints Hematologic/Lymphatic: Hematologic/Lymphatic: Reports no additional hematologic/lymphatic complaints Allergic/Immunologic: Allergic/Immunologic: Reports no additional allergic/immunologic complaints [facility] Past Medical History Medical History (Updated 12/21/21 @ 19:30 by Nichole Conroy NP) Anemia of chronic disease Anxiety AV fistula Chronic respiratory failure Cocaine abuse COPD (chronic obstructive pulmonary disease) End stage renal disease Dialysis Saturday. Erythropoietin deficiency anemia History of CVA (cerebrovascular accident) Hyperlipidemia Hypertension Renal osteodystrophy Troponin I above reference range Surgical History Surgical History S/P dialysis catheter insertion left arm Family History Family History Unknown Family history unknown Social History Social History (Updated 12/21/21 @ 19:22 by Nichole Conroy NP) Social History: The patient is single and disabled. He is a former smoker. He is listed as a full code. His mother Lacie rollins is listed as his contact lens curve grinder. He lives with his mother. He has 2 children. He stated that he used to use cocaine quite frequently. Any feels this is what has ruined his heart and his kidneys. Code status full code Smoking packs per day: 1 Smoking cigarettes per day: 20.0 Years smoked: 40 Smoking pack-years: 40.00 Smoking status: Former smoker Tobacco type: cigarettes Alcohol intake: never Substance use: never Spiritual care concerns: No
[2021-12-21] MEDS: rifAXIMin 550 MG TABLET PO (21:14)
[2021-12-21] MEDS: hydrALAZINE 10 MG TABLET PO (21:14)
[2021-12-22] VITALS (9 sets, daily range): BP systolic 132–154; BP diastolic 72–86; PULSE 76–98; RESP 18–20; TEMP 35.8–36.8; O2SAT 94–100
[2021-12-22 06:57] LABS: Basophils Absolute Auto 0.1 K/mm3 (0.0-0.1); Basophils Percent Auto 0.9 % (0.2-1.2); Eosinophils Absolute Auto 0.1 K/mm3 (0-0.3); Eosinophils Percent Auto 1.5 % (0-4.4); Hematocrit 41.2 % (42.0-52.0); Hemoglobin 12.9 g/dL (14.0-18.0); Immature Granulocyte Absolute 0.02 K/mm3 (0.00-0.031); Immature Granulocyte Percent A 0.3 % (0-0.5); Lymphocytes Absolute Auto 0.86 K/mm3 (0.9-3.2); Lymphocytes Percent Auto 13.2 % (18.3-44.2); Mean Corpuscular HGB Conc 31.3 g/dl (32-36); Mean Corpuscular Hemoglobin 31.5 pg (26-34); Mean Corpuscular Volume 100.7 fl (80-100); Mean Platelet Volume 10.2 fl (7.4-10.4); Monocytes Absolute Auto 0.9 K/mm3 (0.1-0.6); Monocytes Percent Auto 14.1 % (2.6-8.5); Neutrophils Absolute Auto 4.6 K/mm3 (1.3-6.7); Platelet Count Result 142 k/mm3 (150-375); Red Blood Count 4.09 M/mm3 (4.6-6.20); Red Cell Distribution Width 18.5 % (11.5-14.5); White Blood Count 6.5 K/mm3 (4.5-10.0)
[2021-12-22 07:07] LABS: Potassium 5.6 mmol/L (3.4-5.0)
--- NOTE | 2021-12-22 07:08 | PM.IMPN ---
Progress Note: A&P Assessment and Plan (1) Altered mental status: Qualifiers: Altered mental status type: unspecified Qualified Code(s): R41.82 - Altered mental status, unspecified Code(s): R41.82 - Altered mental status, unspecified Status: Acute Assessment and Plan: -the patient was here earlier in the month for the same situation. The patient becomes lethargic during dialysis. The patient takes Ativan before he goes to dialysis. His CT scan shows old strokes. -patient's ammonia level is normal. It was suspected last time that the patient may have had hepatic encephalopathy and was started on rifaximin. Patient awake, but only oriented to person and month. -patient blood sugar was in the 70s on admission. He is not on antidiabetes meds at this time. Patient may be hypoglycemic at dialysis. -He mentioned prior seizure >6 months ago, but is unclear regarding the specifics. Patient is on no antiepileptics. Will continue to monitor. -Hold lorazepam (2) ESRD on dialysis: Code(s): N18.6 - End stage renal disease; Z99.2 - Dependence on renal dialysis Status: Acute Assessment and Plan: -the patient goes to dialysis on Saturday and Saturday. -Nephrology consulted and plan for HD tomorrow 12/23/21 -K 5.6, Na 140, Cl 97, CO2 25, BUN 64, creatinine 9.20, phos 9.3, mag 2.5, GFR 7, glucose 89, anion gap 18. -Continue sevelamer for hyperphosphatemia -will hold lorazepam before dialysis tomorrow. (3) Chronic respiratory failure with hypoxia, on home O2 therapy: Code(s): J96.11 - Chronic respiratory failure with hypoxia; Z99.81 - Dependence on supplemental oxygen Status: Chronic Assessment and Plan: Chronic, does not appear in acute exacerbation -the patient chronically wears 3-4 L of oxygen at home. -continue oxygen at home dose. Monitor vitals and respiratory status. (4) COPD (chronic obstructive pulmonary disease): Qualifiers: COPD type: unspecified COPD Qualified Code(s): J44.9 - Chronic obstructive pulmonary disease, unspecified Code(s): J44.9 - Chronic obstructive pulmonary disease, unspecified Status: Chronic Assessment and Plan: Chronic, not in acute exacerbation. -continue with trilogy Ellipta (5) Hyperlipidemia: Qualifiers: Hyperlipidemia type: mixed hyperlipidemia Qualified Code(s): E78.2 - Mixed hyperlipidemia Code(s): E78.5 - Hyperlipidemia, unspecified Status: Chronic Assessment and Plan: Chronic, stable. -continue with atorvastatin (6) Hypertension: Qualifiers: Hypertension type: primary hypertension Qualified Code(s): I10 - Essential (primary) hypertension Code(s): I10 - Essential (primary) hypertension Status: Chronic Assessment and Plan: Chronic, stable. -continue isosorbide, hydralazine, and metoprolol. (7) Cirrhosis: Qualifiers: Hepatic cirrhosis type: unspecified hepatic cirrhosis Code(s): K74.60 - Unspecified cirrhosis of liver Status: Chronic Assessment and Plan: Diagnosed on last admission. Abd US showing cirrhosis with ascites and portal HTN; mild GB thickening with normal CBD. His plt count low and MCV elevated also consistent with cirrhosis. CT A/P limited but shows nml GB, small volume of ascites and advanced cirrhosis with other chronic findings. HIDA normal to exclude GB pathology.Tbili 1.9, AST 70, ALT 67, Alk phos 419. appears to be at his baseline. -ammonia level is normal. -continue rifaximin Plan CODE STATUS: FULL CODE Disposition: Return home when medically stable for discharge. Time Spent With Patient Time with patient: 25 - 35 minutes Subjective Date/time seen: 12/22/21 07:08 Patient sitting at the side of the bed. Nursing reports that he is frequently getting out of bed and taking off his telemetry. The patient wants to go home. He reports that
[2021-12-22 07:21] LABS: Alanine Aminotransferase 67 U/L (6-50); Albumin Level 4.2 g/dL (3.5-5.1); Alkaline Phosphatase 419 U/L (38-126); Anion Gap 18 mmol/L (8-16); Aspartate Amino Transferase 70 U/L (17-59); Bilirubin,Total 1.9 mg/dL (0.2-1.3); Blood Urea Nitrogen 64 mg/dL (9-20); Calcium 10.1 mg/dL (8.4-10.2); Carbon Dioxide 25 mmol/L (22-30); Chloride 97 mmol/L (98-107); Estimated CRCL calculation 7 ml/min; Estimated Glomerular Filt Rate 7; Glucose 89 mg/dL (65-110); Magnesium 2.5 mg/dL (1.6-2.3); Phosphorus 9.3 mg/dL (2.5-4.5); Sodium 140 mmol/L (137-145)
[2021-12-22 07:51] LABS: Glucose Point of Care 79 mg/dl (65-105)
[2021-12-22] MEDS: ISOSORBIDE MONONITRATE 30 MG TAB.ER.24H PO (08:39)
[2021-12-22] MEDS: rifAXIMin 550 MG TABLET PO (08:39)
[2021-12-22] MEDS: SEVELAMER CARBONATE 800 MG TABLET 1600 MG PO ×2 (08:39→17:45)
[2021-12-22] MEDS: ASPIRIN 81 MG CHEWABLE TABLET PO (08:39)
[2021-12-22] MEDS: hydrALAZINE 10 MG TABLET PO ×2 (08:39→17:45)
[2021-12-22] MEDS: ATORVASTATIN 40 MG TABLET PO (08:39)
[2021-12-22] MEDS: METOPROLOL SUCCINATE EXT REL 25 MG TABCR PO (08:40)
[2021-12-22] MEDS: FLUTICASONE/UMECLIDIN/VILANTER 100-62.5-25 MCG ELLIPTA 1 PUFF INHALATION (09:47)
[2021-12-22 11:34] LABS: Glucose Point of Care 172 mg/dl (65-105)
--- NOTE | 2021-12-22 14:04 | PM.CNNEP ---
Assessment and Plan Assessment and plan (1) End stage renal disease: Code(s): N18.6 - End stage renal disease Status: Chronic Assessment and Plan: plan HD tomorrow continue T/T/S schedule while hospitalized follow electrolytes, volume status, and clearance (2) Altered mental status: Qualifiers: Altered mental status type: unspecified Qualified Code(s): R41.82 - Altered mental status, unspecified Code(s): R41.82 - Altered mental status, unspecified Status: Acute Assessment and Plan: appears back to baseline at this time CT scan negative for new issues ammonia level normal stable blood sugars suspicion falls of use of ativan prior to dialysis treatments ativan currently on hold (3) Hypertension: Code(s): I10 - Essential (primary) hypertension Status: Chronic Assessment and Plan: reasonable control continue to follow hemodynamics (4) Chronic respiratory failure with hypoxia, on home O2 therapy: Code(s): J96.11 - Chronic respiratory failure with hypoxia; Z99.81 - Dependence on supplemental oxygen Status: Chronic Assessment and Plan: chronic issues on 3 - 4L of oxygen at baseline due to COPD History of Present Illness Reason for Consult Consult date: 12/22/21 Reason for consult: end stage renal disease Chief Complaint Chief complaint: ams,esrd History of Present Illness Narrative: The patient is a 56-year-old male with a past medical history as outlined below who presented to [facility] Emergency room yesterday from his dialysis center for further evaluation of altered mental status. Apparently, the patient was receiving his dialysis treatment yesterday when nursing staff noted that he was confused more so towards the end of his dialysis treatments. He received the majority of his dialysis treatment before his treatment was ended due to the concerns that his confusion had progressed to lethargy and there was some concern that there may be some other issue going on. For this reason he was sent to the ER for evaluation. Workup and evaluation the emergency room demonstrated the patient me hemodynamically stable but it seems clear that he was not fully oriented. His mentation seems to fluctuate during his ER visit and is difficult to get him fully oriented. Routine blood test demonstrated labs consistent with his known history of end-stage renal disease and a CT scan of his head did not demonstrate any type of new intracranial findings. His blood sugar was relatively stable and other that his elevated liver function tests which are chronically elevated, there was no other significant findings noted. Do the a for mentioned altered mental status, he was admitted the hospital for further evaluation and therapy. Since his admission, his mental status seems to have slowly improved and he appears to be back to baseline at this time. He is somewhat upset by the fact that he is in the hospital as he feels that the dialysis nurses did not really need to send him to the hospital in the 1st place. Renal consultation was requested due to his end-stage renal disease. The patient normally dialyzes on a Saturday, , Saturday dialysis schedule at [facility] under the care of Dr. Tolentino. as already mentioned above, he received the majority of his dialysis treatment yesterday prior to his transfer to the emergency room. It should be noted the patient was just recently hospitalized in [facility] a few weeks ago for issues related to hyperkalemia as well as altered mental status as well. there is some concern that the Ativan that he takes pre-treatment with dialysis may be playing a role with his fluctuating mental status. Currently, at the time my visit, the patient does not appear to be in acute distress and appears to be back to his baseline mental status. Review of Systems Review of Systems
[2021-12-22 17:45] LABS: Glucose Point of Care 130 mg/dl (65-105)
--- NOTE | 2021-12-22 20:05 | PC.NURSE ---
Addendum entered by Bossman Walsh RN 12/22/21 20:10: Spoke with approximately 1150 with pt refusing tele. MD stated she would prefer him on tele, but she is aware that he is refusing and to document as such. Original Note: Pt refused to keep tele on throughout the dayshift. Requested pt to allow us to put it back on him; pt refused. Pt frequently found with nasal cannula out. Replaced frequently. Pt grabbed his life vest and attempted to pull it off twice. Pt unsteadily attempted to ambulate to bathroom. This RN caught pt and assisted to toilet, and then returned him to bed. Pt frequently getting up out of bed and setting off alarm. Pt states alarm is unnecessary, that he is safe. Pt educated multiple times about potential falls, the bed alarm, and having someone with him during ambulation. At 1600, pt stated he couldn't breathe. Vitals stable. Pt states he feels like something is in his throat; encouraged pt to keep coughing. 02 sat remained greater than 96% throughout episode. Pt stated feeling much better within 15 minutes.
--- NOTE | 2021-12-22 20:28 | PC.NURSE ---
Pt. life vest is no longer working. The battery has run out and no way to charge it at this time. Pt. is now back on telemetry.
[2021-12-22] MEDS: SODIUM ZIRCONIUM CYCLOSILICATE 10 GM POWD.PACK PO (20:49)
[2021-12-23] VITALS (20 sets, daily range): BP systolic 110–162; BP diastolic 56–102; PULSE 69–96; RESP 14–22; TEMP 35.9–37.1; O2SAT 99–100
[2021-12-23] MEDS: hydrALAZINE 10 MG TABLET PO ×5 (00:31→20:08)
[2021-12-23] MEDS: rifAXIMin 550 MG TABLET PO ×3 (00:31→20:08)
[2021-12-23] MEDS: ALBUTEROL SULFATE (*SP) AEROSOL 1 PUFF 2 PUFF INHALATION (05:49)
[2021-12-23 07:55] LABS: Glucose Point of Care 118 mg/dl (65-105)
[2021-12-23] MEDS: METOPROLOL SUCCINATE EXT REL 25 MG TABCR PO (08:04)
[2021-12-23] MEDS: ISOSORBIDE MONONITRATE 30 MG TAB.ER.24H PO (08:04)
[2021-12-23] MEDS: ATORVASTATIN 40 MG TABLET PO (08:04)
[2021-12-23] MEDS: ASPIRIN 81 MG CHEWABLE TABLET PO (08:04)
[2021-12-23] MEDS: FLUTICASONE/UMECLIDIN/VILANTER 100-62.5-25 MCG ELLIPTA 1 PUFF INHALATION (08:06)
[2021-12-23] MEDS: SEVELAMER CARBONATE 800 MG TABLET 1600 MG PO ×3 (08:06→17:04)
[2021-12-23] MEDS: LIDOCAINE/PRILOCAINE CREAM 2.5-2.5% TUBE 1 EACH TOPICAL (08:52)
--- NOTE | 2021-12-23 11:02 | PM.PNNEP ---
Progress Note: A&P Assessment and Plan (1) End stage renal disease: Code(s): N18.6 - End stage renal disease Status: Chronic Assessment and Plan: HD today continue T/T/S schedule while hospitalized follow electrolytes, volume status, and clearance (2) Altered mental status: Qualifiers: Altered mental status type: unspecified Qualified Code(s): R41.82 - Altered mental status, unspecified Code(s): R41.82 - Altered mental status, unspecified Status: Acute Assessment and Plan: appears back to baseline at this time CT scan negative for new issues ammonia level normal stable blood sugars suspicion falls on use of ativan prior to dialysis treatments ativan currently on hold (3) Hypertension: Qualifiers: Hypertension type: primary hypertension Qualified Code(s): I10 - Essential (primary) hypertension Code(s): I10 - Essential (primary) hypertension Status: Chronic Assessment and Plan: reasonable control continue to follow hemodynamics (4) Chronic respiratory failure with hypoxia, on home O2 therapy: Code(s): J96.11 - Chronic respiratory failure with hypoxia; Z99.81 - Dependence on supplemental oxygen Status: Chronic Assessment and Plan: chronic issues on 3 - 4L of oxygen at baseline due to COPD Not opposed to discharge from renal perspective if otherwise medically stable. Will continue to follow. Subjective Date/time seen: 12/23/21 11:02 Tolerating hemodialysis treatment at the time of my visit (seen on HD at 10:40AM); mentation seems stable in comparison to yesterday; no apparent distress voiced; no other issues/events overnight or earlier this AM. Exam Narrative: General: WD/WN AA male in NAD Heart: normal S1 and S2; no rub Lungs: clear to auscultation Abdomen: soft, nontender, nondistended, positive bowel sounds Extremities: no cyanosis or clubbing; no edema Skin: warm and dry Objective Data Vital Signs Vital Signs: Vital Signs Temp Pulse Resp BP Pulse Ox O2 Del Method O2 Flow Rate 12/23/21 11:00 82 133/82 12/23/21 10:30 82 141/91 H 12/23/21 10:00 86 142/85 H 12/23/21 08:00 84 12/23/21 08:00 36.4 C 88 17 130/68 100 12/23/21 09:36 81 140/61 12/23/21 09:37 3 10/15/22 09:27 36.8 C 94 16 134/76 12/23/21 08:00 100 Nasal Cannula 3 12/23/21 08:11 100 Nasal Cannula 3 12/23/21 08:04 82 12/23/21 04:00 37.1 C 81 22 H 131/98 H 100 12/23/21 04:00 84 12/23/21 00:00 83 12/22/21 23:24 36.7 C 85 20 132/86 100 12/22/21 20:00 36.8 C 86 19 154/82 H 94 12/22/21 14:00 36.1 C L 81 18 133/72 97 Intake/Output Intake/Output: Intake & Output 12/20/21 12/21/21 12/22/21 12/23/21 23:59 23:59 23:59 23:59 Intake Total 1548 480 Output Total 0 2477 Balance 1548 -1996 Meds/Results Medications: Active Medications Generic Name Dose Route Start Last Admin Trade Name Freq PRN Reason Stop Dose Admin Albuterol 2 puff 12/21/21 19:20 12/23/21 05:49 Albuterol Sulfate (*Sp) Aerosol 1 Puff INHALATION 2 puff QID PRN Administration Shortness Of Breath Aspirin 81 mg 12/22/21 08:00 12/23/21 08:04 Aspirin 81 Mg Chewable Tablet PO 81 mg DAILY@0800 HARSH Administration Atorvastatin Calcium 40 mg 12/22/21 09:00 12/23/21 08:04 Atorvastatin 40 Mg Tablet PO 40 mg DAILY HARSH Administration Dextrose 12.5 gm 12/21/21 16:28 Dextrose 50% 25 Gm/50 Ml Syringe IV PUSH PRN PRN Hypoglycemia Protocol Fluticasone/Umeclidinium/Vilanterol 1 puff 12/22/21 09:00 12/23/21 08:06 Fluticasone/Umeclidin/Vilanter 100-62.5-25 Mcg Ellipta INHALATION 1 puff DAILY HARSH Administration Glucagon 1 mg 12/21/21 16:28 Glucagon For Inj 1 Mg Vial IM PRN PRN Hypoglycemia Protocol Glucose 15 gm 12/21/21 16:2
--- NOTE | 2021-12-23 16:33 | PM.DS ---
DS: Admitting Diagnosis Discharge Date 12/23/2021 1633 Admitting Diagnosis Altered mental status ESRD on dialysis, chronic Transaminitis DS: Discharge Diagnosis Discharge Diagnosis (1) Altered mental status: Qualifiers: Altered mental status type: unspecified Qualified Code(s): R41.82 - Altered mental status, unspecified Code(s): R41.82 - Altered mental status, unspecified Status: Acute Assessment and Plan: -the patient was admitted earlier this month for the same complaint. The patient becomes lethargic during dialysis. The patient takes Ativan before he goes to dialysis. His CT scan shows old strokes. -patient's ammonia level is normal. It was suspected last time that the patient may have had hepatic encephalopathy and was started on rifaximin. -patient blood sugar was in the 70s on admission. He is not on antidiabetes meds at this time. Possibly hypoglycemic at dialysis. -He mentioned prior seizure >6 months ago, but is unclear regarding the specifics. Patient is on no antiepileptics. Will continue to monitor. -Hold lorazepam -mental status returned to baseline prior to discharge. -TSH tested and within normal limits. -Patient tolerated dialysis without incident the day of discharge. (2) ESRD on dialysis: Code(s): N18.6 - End stage renal disease; Z99.2 - Dependence on renal dialysis Status: Acute Assessment and Plan: -the patient goes to dialysis on Saturday and Saturday. -Nephrology consulted and plan for HD tomorrow 12/23/21 -K 5.6, Na 140, Cl 97, CO2 25, BUN 64, creatinine 9.20, phos 9.3, mag 2.5, GFR 7, glucose 89, anion gap 18. -Continue sevelamer for hyperphosphatemia -lorazepam held before dialysis - Last dialysis Saturday12/23/21 (3) Chronic respiratory failure with hypoxia, on home O2 therapy: Code(s): J96.11 - Chronic respiratory failure with hypoxia; Z99.81 - Dependence on supplemental oxygen Status: Chronic Assessment and Plan: Chronic, does not appear in acute exacerbation -the patient chronically wears 3-4 L of oxygen at home. -continue oxygen at home dose. Monitor vitals and respiratory status. (4) COPD (chronic obstructive pulmonary disease): Qualifiers: COPD type: unspecified COPD Qualified Code(s): J44.9 - Chronic obstructive pulmonary disease, unspecified Code(s): J44.9 - Chronic obstructive pulmonary disease, unspecified Status: Chronic Assessment and Plan: Chronic, not in acute exacerbation. -continue with trilogy Ellipta (5) Hyperlipidemia: Qualifiers: Hyperlipidemia type: mixed hyperlipidemia Qualified Code(s): E78.2 - Mixed hyperlipidemia Code(s): E78.5 - Hyperlipidemia, unspecified Status: Chronic Assessment and Plan: Chronic, stable. -continue with atorvastatin (6) Hypertension: Qualifiers: Hypertension type: primary hypertension Qualified Code(s): I10 - Essential (primary) hypertension Code(s): I10 - Essential (primary) hypertension Status: Chronic Assessment and Plan: Chronic, stable. -continue isosorbide, hydralazine, and metoprolol. (7) Cirrhosis: Qualifiers: Hepatic cirrhosis type: unspecified hepatic cirrhosis Code(s): K74.60 - Unspecified cirrhosis of liver Status: Chronic Assessment and Plan: Diagnosed on last admission. Abd US showing cirrhosis with ascites and portal HTN; mild GB thickening with normal CBD. His plt count low and MCV elevated also consistent with cirrhosis. CT A/P limited but shows nml GB, small volume of ascites and advanced cirrhosis with other chronic findings. HIDA normal to exclude GB pathology.Tbili 1.9, AST 70, ALT 67, Alk phos 419. appears to be at his baseline. -ammonia level is normal. -continue rifaximin DS: Summary Hospital Course Reason for hospitalization: Altered mental status Hospital
[2021-12-23 20:33] LABS: Glucose Point of Care 186 mg/dl (65-105)
== END 2021-12-23 21:00 | disposition home or self-care (01) ==
LOC: ANHED 16:23 → ANH3MEDSUR 17:29
PROVIDERS: Nurse Practitioner; Physician Assistant; Admitting Provider Family Medicine; Emergency Provider Emergency Medicine; Visit Provider Family Medicine
DX: R41.82 Altered mental status, unspecified (principal); J96.11 Chronic respiratory failure with hypoxia; Z99.81 Dependence on supplemental oxygen; N18.6 End stage renal disease; Z99.2 Dependence on renal dialysis; E78.5 Hyperlipidemia, unspecified; I12.0 Hypertensive chronic kidney disease with stage 5 chronic kidney disease or end stage renal disease; Z87.891 Personal history of nicotine dependence; J44.9 Chronic obstructive pulmonary disease, unspecified; R79.89 Other specified abnormal findings of blood chemistry; K74.60 Unspecified cirrhosis of liver; R18.8 Other ascites; K76.6 Portal hypertension
CPT/HCPCS: 36415; 36600; 70450; 71045; 80053; 82140; 82375; 82805; 82948; 83050; 83735; 84100; 84443; 85025; 85610; 85730; 93005; 94640; 99285; A9270; G0257; G0378; J7030